=== PATIENT | female | born 1960 ===

== ENCOUNTER 2020-08-20 06:00 | Outpatient (REF) | payer OTHER, SELFPAY ==
[2020-08-20 07:36] LABS: Alanine Aminotransferase 22 U/L (0-31); Albumin Level 4.6 g/dL (3.5-5.0); Alkaline Phosphatase 77 U/L (39-117); Anion Gap 12 (12-20); Aspartate Amino Transferase 21 U/L (5-31); Bilirubin Total 1.2 mg/dL (0.0-1.0); Blood Urea Nitrogen 21 mg/dL (9-16); Calcium 10.4 mg/dL (8.4-10.2); Carbon Dioxide 32 mmol/L (22-29); Chloride 102 mmol/L (96-108); Cholesterol 144 mg/dL; Estimated Glomerular Filt Rate > 60; Glucose Fasting 116 mg/dL (60-99); HDL Cholesterol 71 mg/dL; LDL Cholesterol Calculated 65 mg/dl; Potassium 4.1 mmol/l (3.3-5.1); Sodium 142 mmol/L (135-145); Total Protein 7.3 g/dL (6.5-8.0); Triglycerides 44 mg/dL
[2020-08-20 07:57] LABS: Vitamin D 25-OH Total 39.8 ng/mL (>30)
[2020-08-20 08:00] LABS: Creatinine Urine 122.27 mg/dL; Microalbum/Creatinine Ratio Ur 4.9 ug/mg cr
== END 2020-08-20 06:01 | disposition home or self-care (01) ==
LOC: HO.LAB 06:00
PROVIDERS: Visit Provider Internal Medicine
DX: E11.9 Type 2 diabetes mellitus without complications (principal); E78.00 Pure hypercholesterolemia, unspecified; E55.9 Vitamin D deficiency, unspecified
CPT/HCPCS: 36415; 80053; 80061; 82043; 82306

== ENCOUNTER 2020-08-24 11:19 | Outpatient (REF) | payer OTHER, SELFPAY ==
--- NOTE | 2020-08-24 | MM_ITS ---
EXAMINATION: MM SCREENING DIGITAL BREAST TOMOSYNTHESIS, BILATERAL CLINICAL INFORMATION: Screening. Asymptomatic. The lifetime risk of breast cancer based on the Tyrer-Cuzick Model is 8%. COMPARISON: Mammography: 08/19/2019, 08/13/2018, 05/22/2017 TECHNIQUE: Digital breast tomosynthesis is performed in both the craniocaudal and mediolateral oblique views along with computer-aided detection (CAD). Synthesized 2D images are generated from the tomosynthesis. FINDINGS: There are scattered areas of fibroglandular density (ACR BI-RADS breast composition Category b). There are no significant masses, abnormal calcifications, or other abnormalities. Parenchymal pattern is similar to prior studies. There is a biopsy clip marker again seen 9:00 right breast. Benign bulky calcification again present posterior upper outer left breast. The axilla and skin contours are unremarkable. MM/MM tomosynthesis screening BI IMPRESSION: No mammographic evidence of malignancy. ASSESSMENT: BI-RADS 2: Benign RECOMMENDATION: Routine annual mammography screening. This patient's information was entered into a reminder system with a target due date for their next mammogram.
== END 2020-08-24 11:20 | disposition home or self-care (01) ==
LOC: HO.MAMMO 11:19
PROVIDERS: PCP Internal Medicine; Visit Provider Internal Medicine
DX: Z12.31 Encounter for screening mammogram for malignant neoplasm of breast (principal)
CPT/HCPCS: 77063; 77067

== ENCOUNTER 2021-12-06 09:11 | Outpatient (REF) | payer OTHER, SELFPAY ==
--- NOTE | ~2021-12-06 | MM_ITS ---
EXAMINATION: MM SCREENING DIGITAL BREAST TOMOSYNTHESIS, BILATERAL CLINICAL INFORMATION: Screening. Asymptomatic. The lifetime risk of breast cancer based on the Tyrer-Cuzick Model is 7%. COMPARISON: Mammography: 08/24/2020, 08/19/2019, 08/13/2018 TECHNIQUE: Digital breast tomosynthesis is performed in both the craniocaudal and mediolateral oblique views along with computer-aided detection (CAD). Synthesized 2D images are generated from the tomosynthesis. FINDINGS: There are scattered areas of fibroglandular density (ACR BI-RADS breast composition Category b). There are no significant masses, abnormal calcifications, or other abnormalities. Right breast biopsy clip marker again noted posterior 8:30 o'clock position. Benign coarse calcification again seen posterior upper outer left breast. The axilla and skin contours are unremarkable. MM/MM tomosynthesis screening BI IMPRESSION: No mammographic evidence of malignancy. ASSESSMENT: BI-RADS 2: Benign RECOMMENDATION: Routine annual mammography screening. This patient's information was entered into a reminder system with a target due date for their next mammogram.
== END 2021-12-06 09:12 | disposition home or self-care (01) ==
LOC: HO.MAMMO 09:11
PROVIDERS: Visit Provider Internal Medicine
DX: Z12.31 Encounter for screening mammogram for malignant neoplasm of breast (principal)
CPT/HCPCS: 77063; 77067

== ENCOUNTER 2022-10-14 05:54 | Outpatient (REF) | payer OTHER, SELFPAY ==
[2022-10-14 08:14] LABS: Alanine Aminotransferase 20 U/L (0-31); Albumin Level 4.3 g/dL (3.5-5.0); Alkaline Phosphatase 66 U/L (39-117); Anion Gap 14 (12-20); Aspartate Amino Transferase 22 U/L (5-31); Bilirubin Total 1.3 mg/dL (0.0-1.0); Blood Urea Nitrogen 21 mg/dL (9-16); Calcium 9.7 mg/dL (8.4-10.2); Carbon Dioxide 29 mmol/L (22-29); Chloride 103 mmol/L (96-108); Cholesterol 154 mg/dL; Estimated Glomerular Filt Rate > 60; Glucose Fasting 104 mg/dL (60-99); HDL Cholesterol 57 mg/dL; LDL Cholesterol Calculated 86 mg/dl; Sodium 142 mmol/L (135-145); Total Protein 6.6 g/dL (6.5-8.0); Triglycerides 59 mg/dL
[2022-10-14 08:53] LABS: Microalbumin Urine < 5.0 mg/L
== END 2022-10-14 05:55 | disposition home or self-care (01) ==
LOC: HO.LAB 05:54
PROVIDERS: PCP Internal Medicine; Visit Provider Internal Medicine
DX: E55.9 Vitamin D deficiency, unspecified (principal); E11.9 Type 2 diabetes mellitus without complications; E78.5 Hyperlipidemia, unspecified
CPT/HCPCS: 36415; 80053; 80061; 82043; 82306

== ENCOUNTER → 2022-11-27 14:55 | Outpatient (BNVA) | payer OTHER, SELFPAY | PROVIDERS: PCP Internal Medicine; Visit Provider Surgery Vascular Surgery | DX: Z13.89 Encounter for screening for other disorder (principal) ==

== ENCOUNTER 2022-12-05 10:08 | Outpatient (REF) | payer OTHER, SELFPAY ==
--- NOTE | ~2022-12-05 | US_ITS ---
EXAMINATION: US LOWER EXTREMITY VENOUS (REFLUX EXAM), BILATERAL CLINICAL INDICATION: Varicose veins COMPARISON: None. TECHNIQUE: Color flow triplex imaging and compression Doppler was performed to evaluate both the deep and the superficial systems bilaterally. To evaluate the superficial system, the examination was performed in the upright position. Color-flow Doppler ultrasound and compression ultrasound were utilized. In addition, maneuvers were utilized to demonstrate reflux. FINDINGS: 1. DEEP VENOUS ULTRASOUND OF THE RIGHT LOWER EXTREMITY: Common Femoral Vein: Compressible, normal respiratory variation and augmented flow. Femoral Vein: Compressible, normal color flow and augmentation. Popliteal Vein: Compressible, normal augmentation. Deep Reflux: There is no evidence of reflux in the deep system in either the common femoral vein or the popliteal vein. There is no evidence of a Allen's cyst. 2. SUPERFICIAL ULTRASOUND WITH DOPPLER OF RIGHT LOWER EXTREMITY: GREAT SAPHENOUS VEIN: Saphenofemoral Junction: 0.6 cm; Reflux: 0 ms Proximal Thigh: 0.5 cm; Reflux: 0 ms Mid Thigh: 0.2 cm; Reflux: 0 ms Above Knee: 0.3 cm; Reflux: 0 ms At Knee: 0.3 cm; Reflux: 0 ms Below Knee: 0.3 cm; Reflux: 0 ms Mid Calf: 0.1 cm; Reflux: 0 ms Ankle: 0.2 cm; Reflux: 0 ms DUPLICATED MEDIAL GREAT SAPHENOUS VEIN: Diameter: None Imaged Reflux: NA DUPLICATED LATERAL GREAT SAPHENOUS VEIN: Proximal: 0.3 cm; Reflux: 604 ms Distal: 0.2 cm; Reflux: 0 ms SMALL SAPHENOUS VEIN: Proximal: 0.2 cm; Reflux: 0 ms Distal: 0.2 cm; Reflux: 0 ms VEIN OF GIACOMINI: Diameter: None Imaged Reflux: NA PERFORATORS: Location: Mid thigh and proximal calf Size: 0.2-0.3 cm Reflux: NA VARICOSITIES: Location: None Imaged Size: NA Reflux: NA 3. DEEP VENOUS ULTRASOUND OF THE LEFT LOWER EXTREMITY: Common Femoral Vein: Compressible, normal respiratory variation and augmented flow. Femoral Vein: Compressible, normal color flow and augmentation. Popliteal Vein: Compressible, normal augmentation. Deep Reflux: There is no evidence of reflux in the deep system in either the common femoral vein or the popliteal vein. There is no evidence of a Allen's cyst. 4. SUPERFICIAL ULTRASOUND WITH DOPPLER OF LEFT LOWER EXTREMITY: GREAT SAPHENOUS VEIN: Saphenofemoral Junction: 0.8 cm; Reflux: 0 ms Proximal Thigh: 0.4 cm; Reflux: 0 ms Mid Thigh: 0.3 cm; Reflux: 1852 ms Above Knee: 0.3 cm; Reflux: 0 ms At Knee: 0.4 cm; Reflux: 0 ms Below Knee: 0.2 cm; Reflux: 0 ms Mid Calf: 0.2 cm; Reflux: 0 ms Ankle: 0.2 cm; Reflux: 0 ms DUPLICATED MEDIAL GREAT SAPHENOUS VEIN: Diameter: None Imaged Reflux: NA DUPLICATED LATERAL GREAT SAPHENOUS VEIN: Diameter: 0.2cm Reflux: NA SMALL SAPHENOUS VEIN: Proximal: 0.2 cm; Reflux: 0 ms Distal: 0.2 cm; Reflux: 0 ms VEIN OF GIACOMINI: Diameter: 0.2cm Reflux: NA PERFORATORS: Location: Calf and mid thigh Size: 0.1-0.3 cm Reflux: NA VARICOSITIES: Location: None Imaged Size: NA Reflux: NA US/US venous duplex LE BI IMPRESSION: 1. No DVT in the bilateral lower extremities. 2. Segmental reflux in the right great saphenous vein at the proximal thigh. 3. Focal segmental reflux in the left great saphenous vein at the mid thigh.
[2022-12-05 10:23] LABS: MANUAL DIFF FLAG NO
[2022-12-05 11:13] LABS: Basophils Absolute Auto 0.1 X10*3/uL (0.0-0.2); Basophils Percent Auto 0.9 % (0-2); Eosinophils Absolute Auto 0.2 X10*3/uL (0.0-0.4); Eosinophils Percent Auto 2.3 % (0-4); Hematocrit 39.6 % (37.0-47.0); Hemoglobin 13.1 g/dl (12.0-16.0); Imm Gran Abs Auto 0.02 X10*3/uL (0.00-0.03); Imm Gran Pct Auto 0.3 % (0.0-0.4); Lymphocytes Absolute Auto 1.9 X10*3/uL (1.2-4.9); Mean Corpuscular HGB Conc 33.1 g/dl (31.0-35.0); Mean Corpuscular Hemoglobin 31.4 pg (27.0-33.0); Mean Platelet Volume 9.8 fL (9.4-12.3); Monocytes Absolute Auto 0.5 X10*3/uL (0.1-1.2); Monocytes Percent Auto 7.3 % (2-11); Neutrophils Absolute Auto 4.3 x10*3/uL (2.0-8.3); Neutrophils Percent Auto 62.2 % (45-73); Platelet Count 270 X10*3/uL (160-400); Red Blood Count 4.17 X10*6/uL (4.20-5.50); Red Cell Distribution Width 12.9 % (11.0-16.0); White Blood Count 6.9 X10*3/uL (4.8-10.8)
[2022-12-05 11:26] LABS: Estimated Average Glucose 117 mg/dL; Hemoglobin A1c % 5.7 %
[2022-12-05 14:28] LABS: Free T4 (Free Thyroxine) 0.84 ng/dL (0.71-1.85)
== END 2022-12-05 10:09 | disposition home or self-care (01) ==
LOC: HO.US 10:08
PROVIDERS: Absent Provider Nurse Practitioner Family; PCP Internal Medicine; Visit Provider Surgery Vascular Surgery
DX: I83.11 Varicose veins of right lower extremity with inflammation (principal); E11.9 Type 2 diabetes mellitus without complications
CPT/HCPCS: 36415; 83036; 84439; 84443; 85025; 93970

== ENCOUNTER 2022-12-12 08:50 | Outpatient (REF) | payer OTHER, SELFPAY ==
--- NOTE | ~2022-12-12 | MM_ITS ---
EXAMINATION: MM SCREENING DIGITAL BREAST TOMOSYNTHESIS, BILATERAL CLINICAL INFORMATION: Screening. Asymptomatic. The lifetime risk of breast cancer based on the Tyrer-Cuzick Model is 5%. COMPARISON: Mammography: , 08/24/2020, 08/19/2019, 08/13/2018 TECHNIQUE: Digital breast tomosynthesis is performed in both the craniocaudal and mediolateral oblique views along with computer-aided detection (CAD). Synthesized 2D images are generated from the tomosynthesis. FINDINGS: There are scattered areas of fibroglandular density (ACR BI-RADS breast composition Category b). There are no significant masses, abnormal calcifications, or other abnormalities. Parenchymal pattern is similar to prior studies and there is no developing density or architectural abnormality. Biopsy clip marker again seen posterior 9:00 right breast. The axilla and skin contours are unremarkable. MM/MM tomosynthesis screening BI IMPRESSION: No mammographic evidence of malignancy. ASSESSMENT: BI-RADS 2: Benign RECOMMENDATION: Routine annual mammography screening. This patient's information was entered into a reminder system with a target due date for their next mammogram.
== END 2022-12-12 08:51 | disposition home or self-care (01) ==
LOC: HO.MAMMO 08:50
PROVIDERS: PCP Internal Medicine; Visit Provider Internal Medicine
DX: Z12.31 Encounter for screening mammogram for malignant neoplasm of breast (principal)
CPT/HCPCS: 77063; 77067

== ENCOUNTER 2023-02-26 16:27 | Outpatient (AMB) | payer OTHER, SELFPAY ==
--- NOTE | 2023-02-26 16:30 | A.OFFPC_ITS ---
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 Accompanied by: Self / Same As Patient Allergies No Known Allergies Allergy (Verified 02/26/23 16:42) Medication List - Last Reconciled 02/26/23 by Iman Garzon MD acetaminophen 1,000 mg (2 x 500 mg) PO Q6H 30 days atorvastatin 10 mg PO BEDTIME 90 days cholecalciferol (vitamin D3) 25 mcg PO DAILY 90 days hydrochlorothiazide 25 mg PO DAILY 90 days lisinopril 10 mg PO DAILY 90 days metformin 500 mg PO BID 90 days Tobacco use date assessed: 10/17/22 Dental Screening Dental Screen Date: 02/26/23 Did you have a dental visit in the last 12 months?: Yes Did you have a dental problem in the last 6 months where you did not have access to dental care?: No Was dental information given to patient?: Patient has dentist HPI HPI Comments History of Present Illness Details This is a 62-year-old female with diabetes mellitus type 2, hypertension and dyslipidemia that complains of right upper quadrant abdominal pain that has been present for over a month associated with constipation. She also feels like a right upper quadrant abdominal lump that bothers her. Also when she bends forward she feels more pain. A1c within goal. Blood pressure borderline normal to mildly elevated but I repeated and he was normal. LDL very close to goal. [facility] Medical History (Updated 02/26/23 @ 16:51 by Iman Garzon MD) Diabetes mellitus Dyslipidemia Essential hypertension Hypovitaminosis D Lumbar pain Surgical History History of laparoscopic cholecystectomy History of mammogram History of tubal ligation Family History (Updated 02/26/23 @ 16:35 by VIKTORIA Cedillo) Father Diabetes Hypertension Mother Diabetes Hypertension Social History Housing: House Alcohol intake: current Alcohol intake frequency: a few times a month Alcohol type: beer, wine and hard liquor Patient Tobacco Use Status: Current everyday Tobacco user Cigarettes Per Day: 7 e-Cigarette/Vaping Use: Never Used Second Hand Smoke Exposure: No service: No Current occupational status: employed Current occupational exposures/hazards: No Cognitive needs: No Hearing needs: No Vision needs: No Questionnaire Thrive Questionnaire Date Thrive assessed: 10/17/22 NANNETTE-7 AMB Questionnaire NANNETTE-7 Date NANNETTE - 7 assessed: 10/17/22 Source: Developed by Drs. Walker Johnson, Gillian Pitts, Rayo Abdi and colleagues, with an educational david from [employer]. Review of Systems Const All systems reviewed & are unremarkable except as noted in HPI and below Eyes Reports no additional complaints, Denies change in vision and Denies other visual disturbances Card Denies chest pain at rest, Denies chest pain with activity, Denies edema, Denies irregular heart rhythm, Denies claudication, Denies dyspnea, Denies dyspnea on exertion, Denies orthopnea, Denies paroxysmal nocturnal dyspnea and Denies slow heart rate Resp Denies cough, Denies dyspnea and Denies dyspnea on exertion GI Reports abdominal pain, Denies change in bowel habits, Denies excessive flatus, Denies nausea and Denies vomiting Denies urinary incontinence, Denies urinary hesitancy and Denies urinary urgency Musc Denies abnormal gait, Denies atrophy, Denies deformity and Denies limited range of motion Skin/Breast Denies bleeding lesions, Denies changing lesions and Denies rash Neuro Denies abnormal gait and Denies lack of coordination Physical exam (Primary Care) Vital Signs: Last Vital Signs BP 140/80 H 02/26/23 16:35 BMI result Body Mass Index 27.3 Tobacco/Smoking Status: Tobacco use Status Tobacco use date assessed 10/17/22 02/26/23 16:30 Patient Tobacco Use Status Current everyday Tobacco 02/26/23 16:30 e-Cigarette/Vaping Use Never Used 02/26/23 16:30 Thrive Assessment: Date of Thrive Assessment Date Thrive assessed 10/17/22 02/26/23 16:30 Eyes General: appearance normal, both eyes and all related structures Eyelids: Yes eyelids normal Conjunctivae: conjunctivae normal Neck Neck: Yes normal visual inspection and Yes supple Resp Effort & Inspection: normal respiratory effort Auscultation: clear to auscultation bilaterally Cardio Jugular venous distension: no JVD Rate: regular rate Rhythm: regular rhythm Heart sounds: S1 normal heart sound present and S2 normal heart sound present GI Inspection: Yes normal to inspection Palpation (GI): Soft to palpation and nontender Auscultation: normal bowel sounds Extrem General: Yes full ROM Assessment and Plan Assessment & Plan (1) Diabetes mellitus: Code(s): E11.9 - Type 2 diabetes mellitus without complications Qualifiers: Diabetes mellitus type: type 2 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 A1c goal is equal or less than 7% (2) Essential hypertension: Code(s): I10 - Essential (primary) hypertension Plan: Continue lisinopril. Blood pressure goal is equal or less than 130/80. (3) Dyslipidemia: Code(s): E78.5 - Hyperlipidemia, unspecified Plan: Continue statins. LDL goal is less than 70. (4) Right upper quadrant abdominal pain: Code(s): R10.11 - Right upper quadrant pain Plan: Ultrasound ordered Orders: Orders Comprehensive Scheller. Panel Fast 02/26/23 E11.9 - Type 2 diabetes mellitus without complications Lipid Panel 02/26/23 E78.5 - Hyperlipidemia, unspecified Free T4 (Free Thyroxine) 02/26/23 R79.89 - Other specified abnormal findings of blood chemistry Thyroid Stimulating Hormone 02/26/23 R79.89 - Other specified abnormal findings of blood chemistry Vitamin D 25-OH Total 02/26/23 E55.9 - Vitamin D deficiency, unspecified Microalbumin, Random (w Creat) 02/26/23 E11.9 - Type 2 diabetes mellitus without complications Thyroglobulin Antibodies 02/26/23 R79.89 - Other specified abnormal findings of blood chemistry Thyroid Peroxidase Antibodies 02/26/23 R79.89 - Other specified abnormal findings of blood chemistry US abdomen comp w elastography 02/26/23 R10.11 - Right upper quadrant pain XR knee LT 2V 02/26/23 M25.562 - Pain in left knee XR knee RT 2V 02/26/23 M25.561 - Pain in right knee Medications: New sennosides (senna) 8.6 mg PO BEDTIME 30 days PRN 30 tabs 1RF constipation Discontinued acetaminophen Discontinued Reason: Patient Completed Course 1,000 mg (2 x 500 mg) PO Q6H 30 days 240 tabs 2RF pain E11.9 - Type 2 diabetes mellitus without complications Coding Level of Care Code Est Pt Level 4 (59768) Diagnoses Diabetes mellitus E11.9 Diabetes mellitus type: type 2 Diabetes mellitus longterm insulin use: without longterm use Diabetes mellitus complication status: without complication Essential hypertension I10 Dyslipidemia E78.5 Right upper quadrant abdominal pain R10.11 Time Spent (min) 21
[2023-02-26 16:35] VITALS: BP 140/80; BMI 27.3
[2023-02-27 09:00] VITALS: BP 138/80
== END 2023-02-26 16:56 | disposition home or self-care (01) ==
PROVIDERS: PCP Internal Medicine; Visit Provider Internal Medicine
DX: E11.9 Type 2 diabetes mellitus without complications (principal); I10 Essential (primary) hypertension; E78.5 Hyperlipidemia, unspecified; R10.11 Right upper quadrant pain
CPT/HCPCS: 99214

== ENCOUNTER 2023-03-13 10:45 | Outpatient (AMB) | payer OTHER, SELFPAY ==
--- NOTE | 2023-03-13 10:55 | MHC.OFFVIS ---
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 female here today for pre colonoscopy screening.? Patient was sent to us by his PCP.? Patient is a believes that she had a colonoscopy over 5 years ago, was done at [facility], states that she had 3 polyps. Patient denies any gastrointestinal symptoms in the past or at present.? However patient does report that she is taking Senokot and she continues to be constipated. Patient denies melena, hematochezia, unintentional weight loss or ribbon like stools. Denies any personal or family history of gastrointestinal disease or cancer.? Denies history of difficulty with sedation or anesthesia in the past.? Negative for history of sleep apnea.? Denies any history of cardiac, renal, pulmonary, or hepatic disease.?? No history of infectious? diseases like hepatitis A, B, C, HIV or tuberculosis.? Patient is not on any anticoagulation therapy. [facility] Medical History Diabetes mellitus Dyslipidemia Essential hypertension Hypovitaminosis D Lumbar pain Surgical History History of laparoscopic cholecystectomy History of mammogram History of tubal ligation Family History Father Diabetes Hypertension Mother Diabetes Hypertension Social History Housing: House Alcohol intake: current Alcohol intake frequency: a few times a month Alcohol type: beer, wine and hard liquor Patient Tobacco Use Status: Current everyday Tobacco user Cigarettes Per Day: 7 e-Cigarette/Vaping Use: Never Used Second Hand Smoke Exposure: No service: No Current occupational status: employed Current occupational exposures/hazards: No Cognitive needs: No Hearing needs: No Vision needs: No Review of Systems Const Denies weight gain and Denies weight loss ENT Reports no additional complaints, Denies dysphagia and Denies odynophagia Card Reports no additional complaints Resp Reports no additional complaints GI Denies abdominal pain, Denies belching, Denies melena, Denies bloating, Reports constipation, Denies dysphagia, Denies excessive flatus, Denies dyspepsia, Denies heartburn, Denies diarrhea, Denies loose stools, Denies nausea, Denies odynophagia and Denies vomiting Reports no additional complaints Musc Reports no additional complaints Neuro Reports no additional complaints Psych Reports no additional complaints Endo Reports no additional complaints Physical Exam Vital Signs: Last Vital Signs Pulse 79 03/13/23 10:56 BP 142/75 H 03/13/23 10:56 BMI result Body Mass Index 27.4 Const General: healthy appearing, no acute distress and well developed Nutritional Appearance: well nourished Orientation/consciousness: patient oriented x3 HEENT Head: Yes normal to inspection, Yes normocephalic and Yes atraumatic Face and sinus: Yes normal facial exam Mouth: Normal oral and palatal mucosa present Throat: Yes posterior oropharynx normal, Yes tonsils normal and Yes uvula midline Eyes General: appearance normal, both eyes and all related structures Neck Neck: Yes normal visual inspection, Yes full ROM and Yes trachea midline Thyroid: Thyroid normal Resp Effort & Inspection: normal respiratory effort, able to speak in complete sentences, no tracheal deviation and symmetric chest movement Auscultation: clear to auscultation bilaterally Cardio Rate: regular rate Heart sounds: S1 normal heart sound present and S2 normal heart sound present GI Inspection: Yes normal to inspection and No distended Palpation (GI): Soft to palpation, not firm, nontender and No hepatosplenomegaly present Auscultation: normal bowel sounds General: Yes no CVA tenderness Back/Spine/Pelvis Back: no CVA tenderness Skin General skin exam: elasticity normal, turgor normal and dry skin Neuro General: patient oriented x3 Psych Appearance: grossly normal Mental Status: mental status grossly normal Speech and movement: Normal speech and movement present Affect: normal affect Assessment & Plan Assessment & Plan (1) Constipation: Code(s): K59.00 - Constipation, unspecified Qualifiers: Constipation type: slow transit constipation Qualified Code(s): K59.01 - Slow transit constipation Plan: Patient reports constipation. Senokot is not working for her. Will start Linzess. Patient also reports right upper quadrant pain, however negative exam. Negative Jacobs sign. Most likely gas trapping pain. Hyperactive bowels. Pain not related to meals. Patient was encouraged to increase fluid intake and activity to promote better bowel motility. (2) Screening for colon cancer: Code(s): Z12.11 - Encounter for screening for malignant neoplasm of colon Plan: Patient denies any GI, cardiac or respiratory symptoms.? Patient reports to have history of constipation, Senokot is not helping. She will be started on Linzess 145 mcg daily. Patient will call our office if she continues to be constipated or if it will cause diarrhea. Patient denies any issues with anesthesia in the past.? Denies any history of sleep apnea.? No history infectious diseases in the past or present.? Not on any anticoagulation therapy.? No family or personal history of colon cancer. History of of colonoscopy over 5 years ago patient was found to have 3 polyps.? Patient denies melena, hematochezia, unintentional weight loss or ribbon like stools.? Discussed at length the pre-procedure,? prep, diet & medications as well as what to expect prior, during and after the procedure.?? Stressed the importance of good bowel prep. ?Recommended the use of Vaseline or Calmoseptine OTC & baby wipes with bowel movements to promote comfort.? ?Patient verbalizes understanding and agrees to plan of care.? She was given the opportunity to ask questions and all questions answered.? We will see her after the procedure.? Medications: New linaclotide (Linzess) 145 mcg PO DAILY 30 caps 2RF bisacodyl (Dulcolax (bisacodyl)) take 2 tabs at noon the day before your colonoscopy 10 mg (2 x 5 mg) PO ONCE 4 tabs 0RF 1 day Z12.11 - Encounter for screening for malignant neoplasm of colon polyethylene glycol 3350 (Miralax) As directed by gastroenterology department at [facility] 238 grams PO ONCE 238 grams 0RF Z12.11 - Encounter for screening for malignant neoplasm of colon Coding Level of Care Code New Pt Level 3 (05618) Diagnoses Constipation K59.01 Constipation type: slow transit constipation Screening for colon cancer Z12.11
[2023-03-13 10:56] VITALS: BP 142/75; PULSE 79; BMI 27.4
== END 2023-03-13 11:48 | disposition home or self-care (01) ==
PROVIDERS: PCP Internal Medicine; Visit Provider Nurse Practitioner Family
DX: K59.01 Slow transit constipation (principal); Z12.11 Encounter for screening for malignant neoplasm of colon
CPT/HCPCS: 99203

== ENCOUNTER → 2023-03-13 10:45 | Outpatient (BNVA) | payer OTHER, SELFPAY | PROVIDERS: PCP Internal Medicine; Visit Provider Nurse Practitioner Family ==

== ENCOUNTER 2023-03-20 10:39 | Outpatient (REF) | payer OTHER, SELFPAY ==
--- NOTE | ~2023-03-20 | US_ITS ---
EXAMINATION: US COMPLETE ABDOMEN WITH LIVER ELASTOGRAPHY CLINICAL INFORMATION: Right upper quadrant pain. COMPARISON: None available. TECHNIQUE: Real-time imaging of the abdominal viscera. Noninvasive ultrasound liver fibrosis assessment is performed using Tia ElastPQ point quantification shear wave elastography (2D-SWE) with a C5-2 MHz transducer. Multiple elastography samples are obtained. FINDINGS: PANCREAS: Normal. The visualized pancreatic head and body are normal in appearance. The remainder of the pancreas is obscured from visualization by the overlying bowel gas. ABDOMINAL AORTA: The proximal, middle, and distal aortic segments are normal in caliber. INFERIOR VENA CAVA: Visualized portions are normal. LIVER: The liver demonstrates normal size, contour and diffuse increased echogenicity. No focal lesion or intrahepatic biliary duct dilatation. The right lobe measures 13.5 cm in length. The left lobe measures 9.58 cm in length. Portal flow is hepatopedal. Shear wave liver elastography median stiffness is 1.52 m/s (reference: normal median stiffness is 1.3 m/s or less). IQR/median stiffness to assess sampling precision is 0.07 (reference: good quality data set is IQR/median stiffness of 0.15 or less). GALLBLADDER: Normal. The gallbladder is physiologically distended without evidence of stones, sludge, polyps, wall thickening or pericholecystic fluid. COMMON BILE DUCT: Normal in caliber measuring 0.41 cm in diameter. RIGHT KIDNEY: Normal. No hydronephrosis. No renal calculi or focal parenchymal lesions. The kidney measures 9.3 cm in maximum dimension. LEFT KIDNEY: Normal. No hydronephrosis. No renal calculi or focal parenchymal lesions. The kidney measures 8.9 cm in maximum dimension. SPLEEN: Normal. The spleen measures 8.5 cm in maximum dimension. FREE FLUID: None. US/US abdomen comp w elastography IMPRESSION: 1. Hepatic steatosis without focal lesion. 2. Liver elastography: Median liver stiffness measures 1.52 m/s corresponding to cACLD ruled out. REFERENCE: Society of Radiologists in Ultrasound Liver Stiffness Thresholds (2020): LIVER STIFFNESS THRESHOLDS: *Liver Stiffness equal or less than 1.3 m/s: High probability of being normal. *Liver Stiffness less than 1.7 m/s: In the absence of other known clinical signs, rules out compensated advanced chronic liver disease. *Liver Stiffness 1.7-2.1 m/s: Suggestive of compensated advanced chronic liver disease but need further test for confirmation. *Liver Stiffness over 2.1 m/s: Rules in compensated advanced chronic liver disease. *Liver Stiffness over 2.4 m/s: Suggestive of clinically significant portal hypertension. QUALITY OF DATA SET: *IQR/Median value equal or less than 0.15 implies a quality data set. *IQR/Median value over 0.15 implies a poor quality data set. SIGNIFICANT CHANGE FROM PRIOR EXAM: Significant change if liver stiffness measurement is 10% or greater from prior exam. OTHER CONSIDERATIONS: The stage of liver fibrosis may be overestimated in the setting of acute hepatitis, liver inflammation, elevated liver function tests, hepatic vascular congestion, obstructive cholestasis, non-fasting state, and infiltrative diseases such as amyloidosis and lymphoma. In some patients with NAFLD, the liver stiffness thresholds for compensated advanced chronic liver disease may be lower. In causes other than viral hepatitis and NAFLD, liver stiffness thresholds are not well established.
--- NOTE | ~2023-03-20 | XR_ITS ---
EXAMINATIONS: BILATERAL KNEES 4 VIEWS CLINICAL INFORMATION: Right knee pain, left knee pain. COMPARISON: None. TECHNIQUE: AP, lateral views of each knee were obtained. FINDINGS: There are no fractures or dislocations. There is small joint effusion on the right only . There is no significant soft tissue swelling. Right knee revealed narrowing of lateral compartment of knee joint and mild valgus deformity. There is patellar spurring. Left knee reveals patellar spurring but no joint spaces narrowing. XR/XR knee RT 2V IMPRESSION: Mild degenerative changes in the right knee joint with small joint effusion and patellar spurring.
--- NOTE | ~2023-03-20 | XR_ITS ---
EXAMINATIONS: BILATERAL KNEES 4 VIEWS CLINICAL INFORMATION: Right knee pain, left knee pain. COMPARISON: None. TECHNIQUE: AP, lateral views of each knee were obtained. FINDINGS: There are no fractures or dislocations. There is small joint effusion on the right only . There is no significant soft tissue swelling. Right knee revealed narrowing of lateral compartment of knee joint and mild valgus deformity. There is patellar spurring. Left knee reveals patellar spurring but no joint spaces narrowing. XR/XR knee LT 2V IMPRESSION: Mild degenerative changes in the right knee joint with small joint effusion and patellar spurring.
== END 2023-03-20 10:40 | disposition home or self-care (01) ==
LOC: HO.US 10:39
PROVIDERS: PCP Internal Medicine; Visit Provider Internal Medicine
DX: R10.11 Right upper quadrant pain (principal); M25.561 Pain in right knee; M25.562 Pain in left knee
CPT/HCPCS: 73560; 76705; 76981

== ENCOUNTER 2023-04-26 05:47 | Emergency (ER) | payer OTHER, SELFPAY ==
--- NOTE | ~2023-04-26 | CT_ITS ---
EXAMINATION: CT ABDOMEN AND PELVIS WITHOUT CONTRAST CLINICAL INFORMATION: Right flank pain, nausea, dysuria COMPARISON: Ultrasound abdomen 03/20/2023 TECHNIQUE: Multidetector volumetric imaging was performed from the superior aspect of the liver through the pubic symphysis. Sagittal and coronal reformatted images were obtained on the technologist's workstation. This CT examination was performed using dose optimization techniques as appropriate, variously including the following: *Automated exposure control *Adjustment of mA and/or kV according to patient size (this includes techniques or standardized protocols for targeted exams where dose is matched to indication/reason for exam; i.e. extremities or head) *Use of iterative reconstruction technique DLP: 518 mGy-cm FINDINGS: LUNG BASES: The visualized lung bases are unremarkable. LIVER, GALLBLADDER, AND BILIARY TREE: The liver is normal in size, shaped. Attenuation is within normal limits for CT.. No focal hepatic lesion or biliary ductal dilatation is present. Status postcholecystectomy. PANCREAS: Unremarkable. SPLEEN: Unremarkable. ADRENAL GLANDS: Slightly bulky appearance of the adrenal glands, nonspecific. No focal lesion is identified. KIDNEYS AND URETERS: There is a 4 mm calculus in the right ureterovesical junction. There is moderate hydroureteronephrosis. Moderate right perinephric stranding. There are at least 5 small nonobstructing right renal calculi, measuring 1-2 mm in size. Multiple small punctate densities in the left kidney, could reflect small renal calculi. No left-sided hydronephrosis BLADDER: Unremarkable. GASTROINTESTINAL TRACT: Nondistended. No small or large bowel obstruction. No bowel inflammatory changes are seen. Small-moderate stool in the colon. Appendix appears unremarkable. No free air. ABDOMINAL WALL: No significant hernia is appreciated. LYMPH NODES: No significant lymphadenopathy is identified. VASCULAR: Normal caliber aorta. PELVIC VISCERA: Unremarkable. OSSEOUS STRUCTURES: Mild degenerative changes in the spine. CT/CT abdomen pelvis wo IV con IMPRESSION: Moderate right hydroureteronephrosis, with a 4 mm obstructing calculus at the right ureterovesicular junction. Multiple nonobstructing bilateral renal calculi otherwise seen. Status postcholecystectomy. Additional findings and details as above. Fleischner guidelines were followed.
[2023-04-26 05:54] VITALS: BP 135/68; PULSE 72; RESP 18; TEMP 37.2; O2SAT 100; BMI 26.8
[2023-04-26 06:10] VITALS: BP 145/75; PULSE 74; RESP 19; TEMP 36.7; O2SAT 99
[2023-04-26 06:23] LABS: Hemoglobin 12.7 g/dl (12.0-16.0); Mean Corpuscular HGB Conc 34.3 g/dl (31.0-35.0); Mean Corpuscular Volume 93.2 fL (80.0-98.0); Mean Platelet Volume 8.9 fL (9.4-12.3); Platelet Count 265 X10*3/uL (160-400); Red Blood Count 3.97 X10*6/uL (4.20-5.50); Red Cell Distribution Width 12.6 % (11.0-16.0); White Blood Count 11.2 X10*3/uL (4.8-10.8)
--- NOTE | 2023-04-26 06:28 | MHC.EDTECH ---
This tech assumed care of this pt upon arrival. pt changed into hospital gown. Bloodwork sent to lab for processing awaiting pt to provide urine specimen
[2023-04-26 06:39] LABS: Alanine Aminotransferase 18 U/L (0-31); Albumin Level 4.4 g/dL (3.5-5.0); Alkaline Phosphatase 72 U/L (39-117); Anion Gap 12 (12-20); Aspartate Amino Transferase 19 U/L (5-31); Bilirubin Direct 0.2 mg/dL (0.0-0.5); Bilirubin Total 0.6 mg/dL (0.0-1.0); Blood Urea Nitrogen 18 mg/dL (9-16); Calcium 9.7 mg/dL (8.4-10.2); Carbon Dioxide 24 mmol/L (22-29); Chloride 104 mmol/L (96-108); Creatinine Clr Calc Pharmacy 59.1; Estimated Glomerular Filt Rate > 60; Glucose Random 138 mg/dL (60-115); Potassium 4.6 mmol/L (3.3-5.1); Sodium 135 mmol/L (135-145); Total Protein 6.9 g/dL (6.5-8.0)
--- NOTE | 2023-04-26 06:42 | ED.GENADULT ---
HPI - General Adult General Chief complaint: General Medical Stated complaint: Flank pain Time Seen by Provider: 04/26/23 06:31 Source: patient Mode of arrival: ambulatory Limitations: no limitations History of Present Illness HPI narrative: Is a 62-year-old female who presents emergency department for evaluation of right flank pain. Reports onset yesterday evening that has become progressively worse throughout the night. She has associated nausea and dysuria. She denies fevers, chills, chest pain, shortness of breath, cough, vomiting, diarrhea, constipation, hematochezia, melena, hematuria, abnormal vaginal a discharge/bleeding. Related Data Previous Rx's Medication Instructions Recorded cholecalciferol (vitamin D3) 25 25 mcg PO DAILY 90 days #90 caps 04/11/21 mcg (1,000 unit) capsule metformin 500 mg tablet 500 mg PO BID 90 days #180 tabs 12/15/22 lisinopril 10 mg tablet 10 mg PO DAILY 90 days #90 tabs 02/23/23 sennosides 8.6 mg tablet (senna) 8.6 mg PO BEDTIME PRN constipation 02/26/23 30 days #30 tabs hydrochlorothiazide 25 mg tablet 25 mg PO DAILY 90 days #90 tabs 03/06/23 bisacodyl 5 mg tablet,delayed 10 mg (2 x 5 mg) PO ONCE 1 day #4 03/13/23 release (Dulcolax (bisacodyl)) tabs linaclotide 145 mcg capsule 145 mcg PO DAILY #30 caps 03/13/23 (Linzess) polyethylene glycol 3350 17 238 g PO ONCE #238 grams 03/13/23 gram/dose oral powder (Miralax) atorvastatin 10 mg tablet 10 mg PO BEDTIME 90 days #90 tabs 03/28/23 ketorolac 10 mg tablet 10 mg PO TID PRN pain 5 days #14 04/26/23 tabs ondansetron 4 mg disintegrating 4 mg PO Q8H PRN nausea and 04/26/23 tablet vomiting #10 tabs prednisone 20 mg tablet 20 mg PO DAILY #5 tabs 04/26/23 tamsulosin 0.4 mg capsule (Flomax) 0.4 mg PO BEDTIME #10 caps 04/26/23 Allergies Allergy/AdvReac Type Severity Reaction Status Date / Time No Known Allergies Allergy Verified 03/13/23 10:56 Review of Systems Review of Systems: Yes all other systems are reviewed and are negative [facility] Past Medical History Attestation statement: The following information was validated with the patient. Source: old records reviewed Medical History Lumbar pain Hypovitaminosis D Dyslipidemia Diabetes mellitus Essential hypertension Surgical History History of laparoscopic cholecystectomy History of mammogram History of tubal ligation Family History Family History Father Diabetes Hypertension Mother Diabetes Hypertension Social History Social History Housing: House Alcohol intake: current Alcohol intake frequency: holidays/special occasions only Alcohol type: beer, wine and hard liquor Patient Tobacco Use Status: Current everyday Tobacco user Cigarettes Per Day: 7 Smoked in Last 30 Days: No e-Cigarette/Vaping Use: Never Used Second Hand Smoke Exposure: No Use of substances other than those prescribed or required for medical reasons: No Advance Directives: No Advance Directives Information Provided: Yes Patient : No service: No Current occupational status: employed Current occupational exposures/hazards: No Cognitive needs: No Hearing needs: No Vision needs: No Physical Exam ED Vital Signs: Vital Signs - 24 hr 04/26/23 05:54 04/26/23 06:10 Temperature 98.9 F 98.1 F Pulse Rate 72 74 Respiratory Rate 18 19 Blood Pressure 135/68 145/75 H Pulse Oximetry 100 99 Oxygen Delivery Method Room Air Room Air BMI result Body Mass Index 26.8 Appearance: Alert.?Oriented to person, place and time. No acute distress.?Normal affect. Eyes: Pupils equal, round and reactive to light.? ENT: Pharynx normal.?? Neck: Normal inspection.? Neck supple.?? CVS: Heart sounds normal. Normal heart rate and rhythm.? Pulses normal.?? Respiratory: No respiratory distress.? Lung sounds clear to auscultation bilaterally?? Abdomen: Soft and non-tender. Normoactive bowel sounds. Right CVA tenderness? Skin: Skin warm and dry.? Normal skin color.?? Extremities: No lower extremity edema.? Neuro: Moves all extremities spontaneously. Sensation intact bilaterally. Ambulates with normal steady gait. Course Reevaluation(s) Reevaluation #1: CT of the abdomen and pelvis revealing a moderate right hydroureteronephrosis with a 4 mm obstructing calculus at the UVJ, and multiple nonobstructing bilateral calculi. Patient with significant improvement in her pain after receiving Toradol, nausea has resolved. She is tolerating oral intake. At this time feel that she is stable for discharge home, outpatient follow-up with Urology. Discussed strict return precautions. Will send prescriptions for tamsulosin, prednisone, and Ketorolac to pharmacy. Patient is a diabetic she is not on any insulin takes metformin, and reports that her blood sugars have been in good control. Her glucose today is 138. We discussed close monitoring of blood glucose levels while prednisone as this may result in hyperglycemia and she verbalized understanding of this. Time: 08:27 Medications Administered Discontinued Medications Generic Name Dose Route Start Last Admin Trade Name Freq PRN Reason Stop Dose Admin Sodium Chloride 1,000 mls @ 999 mls/hr 04/26/23 06:45 04/26/23 07:42 Ns IV 04/26/23 07:45 999 mls/hr .Q1H1M BETH Administration Ketorolac Tromethamine 30 mg 04/26/23 06:42 04/26/23 07:41 Ketorolac Tromethamine 30 Mg/Ml Vial IVPUSH 04/26/23 06:43 30 mg ONCE ONE Administration Ondansetron HCl 4 mg 04/26/23 06:42 04/26/23 07:42 Ondansetron Hcl 4 Mg/2 Ml Vial IVPUSH 04/26/23 06:43 4 mg ONCE ONE Administration Medical Decision Making Medical Decision Making [facility] Narrative: patient is a 62-year-old female past medical history of type 2 diabetes, hypertension, dyslipidemia presenting to the emergency department for evaluation of right flank pain. At the time my examination she appears uncomfortable though overall well. She is afebrile without tachycardia. She has notable right CVA tenderness, no abdominal tenderness appreciated upon exam. Will obtain CBC to evaluate for leukocytosis/ anemia, CMP and lipase to evaluate for abnormal electrolytes /abnormal renal function/ abnormal hepatic/biliary function, Urinalysis. in addition will obtain CT of the abdomen and pelvis to evaluate for cholecystitis, nephrolithiasis, ureteral calculi, hydronephrosis, pyelonephritis, less likely to be appendicitis / colitis/obstruction. Patient to receive 1 L normal saline IV, Zofran 4 mg IV, and Toradol IV. Differential Diagnosis Differential Diagnoses: The differential diagnosis associated with the presentation includes ( As noted above) Admission/Observation Consideration of admission/observation: Escalation of care including admission/observation considered ( I considered admission for abdominal pain, see course narrative for further detail) Lab Data MDM Lab Attestation statement: I reviewed the patient's lab results. CBC reveals a mild leukocytosis of 11.2, no anemia. CMP is overall unremarkable. urinalysis reveals Microscopic hematuria, no evidence of infection. 04/26/23 06:17 04/26/23 06:17 Labs: Lab Results 04/26/23 04/26/23 Range/Units 06:17 06:45 WBC 11.2 H (4.8-10.8) X10*3/uL RBC 3.97 L (4.20-5.50) X10*6/uL Hgb 12.7 (12.0-16.0) g/dl Hct 37.0 (37.0-47.0) % MCV 93.2 (80.0-98.0) fL MCH 32.0 (27.0-33.0) pg MCHC 34.3 (31.0-35.0) g/dl RDW 12.6 (11.0-16.0) % Plt Count 265 (160-400) X10*3/uL MPV 8.9 L (9.4-12.3) fL Absolute Nucleated RBC 0.000 (0.0-0.012) X10*3/uL Nucleated RBC % (auto) 0.0 (0.0-0.2) /100WBC Sodium 135 (135-145) mmol/L Potassium 4.6 (3.3-5.1) mmol/L Chloride 104 (96-108) mmol/L Carbon Dioxide 24 (22-29) mmol/L Anion Gap 12 (12-20) BUN 18 H (9-16) mg/dL Creatinine 0.94 (0.5-1.4) mg/dL Estim Creat Clear Calc 59.1 Estimated GFR > 60 Random Glucose 138 H (60-115) mg/dL Calcium 9.7 (8.4-10.2) mg/dL Total Bilirubin 0.6 (0.0-1.0) mg/dL Direct Bilirubin 0.2 (0.0-0.5) mg/dL AST 19 (5-31) U/L ALT 18 (0-31) U/L Alkaline Phosphatase 72 (39-117) U/L Troponin I High Sens < 2.7 (<3.5-17.0) ng/L Total Protein 6.9 (6.5-8.0) g/dL Albumin 4.4 (3.5-5.0) g/dL Lipase 14 (8-78) U/L Urine Color Yellow Urine Appearance Clear Urine pH 7.0 (5.0-9.0) Ur Specific [place] 1.015 (1.005-1.025) Urine Protein Negative (Neg-Trace) mg/dL Urine Glucose (UA) Negative (Negative) mg/dL Urine Ketones Negative (Negative) mg/dL Urine Blood Small (1+) H (Negative) Urine Nitrite Negative (Negative) Ur Leukocyte Esterase Negative (Negative) Urine RBC 3-5 H (0-2) /HPF Urine WBC 0-5 (0-5) /HPF Ur Squamous Epith Cells 0-2 (0-2) /HPF Urine Bacteria None Seen (None Seen) Hyaline Casts 0-2 (0-2) /LPF Radiology Impression Discussion of test interpretation with radiology: I have reviewed the radiologist's reading. Radiologist Impression: CT/CT abdomen pelvis wo IV con IMPRESSION: Moderate right hydroureteronephrosis, with a 4 mm obstructing calculus at the right ureterovesicular junction. Multiple nonobstructing bilateral renal calculi otherwise seen. Status postcholecystectomy. Additional findings and details as above. Independent Historian Clinical information obtained from an independent historian. History obtained from or confirmed by: Spouse ( Present at bedside who confirms history) External Record Review External record reviewed: Outpatient record and Prior outpatient labs Prescription Management I considered prescription management with: Pain Medication Discharge Plan Discharge Clinical Impression: Hydronephrosis with urinary obstruction due to ureteral calculus Patient Disposition: Home, Self-Care Instructions: Hydronephrosis (ED), Ureteral Stones (ED) Additional Instructions: as discussed, please take the medications as prescribed; tamsulosin/ Flomax to be taken in the evening, prednisone to be taken with food daily, and ketorolac to be taken as needed for pain. I have also sent a prescription for Zofran to the pharmacy to use as needed for nausea. You may return back to emergency department with any new or worsening symptoms or concerns. Please contact Urology office to arrange for a follow-up visit. Prescriptions: New tamsulosin [Flomax] 0.4 mg capsule 0.4 mg PO BEDTIME Qty: 10 0RF prednisone 20 mg tablet 20 mg PO DAILY Qty: 5 0RF ondansetron 4 mg tablet,disintegrating 4 mg PO Q8H PRN (Reason: nausea and vomiting) Qty: 10 0RF ketorolac 10 mg tablet 10 mg PO TID PRN (Reason: pain) 5 Days Qty: 14 0RF No Action metformin 500 mg tablet 500 mg PO BID 90 Days Qty: 180 3RF lisinopril 10 mg tablet 10 mg PO DAILY 90 Days Qty: 90 1RF hydrochlorothiazide 25 mg tablet 25 mg PO DAILY 90 Days Qty: 90 3RF atorvastatin 10 mg tablet 10 mg PO BEDTIME 90 Days Qty: 90 3RF cholecalciferol (vitamin D3) 25 mcg (1,000 unit) capsule 25 mcg PO DAILY 90 Days Qty: 90 1RF sennosides [senna] 8.6 mg tablet 8.6 mg PO BEDTIME PRN (Reason: constipation) 30 Days Qty: 30 1RF Linzess 145 mcg capsule 145 mcg PO DAILY Qty: 30 2RF bisacodyl [Dulcolax (bisacodyl)] 5 mg tablet,delayed release (DR/EC) 10 mg PO ONCE 1 Days Qty: 4 0RF Rx Instructions: take 2 tabs at noon the day before your colonoscopy polyethylene glycol 3350 [Miralax] 17 gram/dose powder 238 g PO ONCE Qty: 238 0RF Rx Instructions: As directed by gastroenterology department at [facility] Referrals: Melvina Elam MD [Physician] - Iman Ordoñez MD [Primary Care Provider] -
[2023-04-26 06:47] LABS: Troponin-I High Sensitivity < 2.7 ng/L (<3.5-17.0)
[2023-04-26 06:55] LABS: Appearance Urine Clear; Color Urine Yellow; Glucose Urine UA Negative (Negative); Leukocyte Esterase Urine Negative (Negative); Nitrite Urine Negative (Negative); Specific Gravity - Urine 1.015 (1.005-1.025); UMIC TRIGGER UACC YES; Urine Blood Small (1+) (Negative); Urine Ketones Negative (Negative); Urine Protein Negative (Neg-Trace)
[2023-04-26 07:02] LABS: Bacteria Urine None Seen (None Seen); Hyaline Casts Urine 0-2 /LPF (0-2); Squamous Epithelial Cell Urine 0-2 /HPF (0-2); WBC Urine 0-5 /HPF (0-5)
[2023-04-26 07:05] LABS: Lipase 14 U/L (8-78)
[2023-04-26] MEDS: Ketorolac Tromethamine 30 MG/ML VIAL IVPUSH (07:41)
[2023-04-26] MEDS: 0.9 % Sodium Chloride 1,000 ML 999 ML IV (07:42)
[2023-04-26] MEDS: ondansetron HCL 4 MG/2 ML VIAL IVPUSH (07:42)
[2023-04-26 08:47] VITALS: BP 141/73; PULSE 76; RESP 18; TEMP 36.8; O2SAT 98
== END 2023-04-26 09:12 | disposition home or self-care (01) ==
PROVIDERS: Nurse Practitioner Family; Emergency Provider Student in an Organized Health Care Education/Training Program; PCP Internal Medicine
DX: N13.2 Hydronephrosis with renal and ureteral calculous obstruction (principal); R11.2 Nausea with vomiting, unspecified; R30.0 Dysuria; F17.210 Nicotine dependence, cigarettes, uncomplicated; Z71.6 Tobacco abuse counseling; Z79.899 Other long term (current) drug therapy
CPT/HCPCS: 36415; 74176; 80053; 81001; 82248; 83690; 84484; 85027; 96361; 96374; 96375; 99284; J1885; J2405

== ENCOUNTER 2023-05-29 14:19 | Outpatient (AMB) | payer OTHER, SELFPAY ==
--- NOTE | 2023-05-29 14:24 | A.OFFVIS_ITS ---
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 05/29/2023? She presents today for an evaluation of nephrolithiasis. She was seen ER on 04/26/23 for right flank pain. She has past medical history significant for type 2 diabetes and hypertension. Patient states that since she left the ER she has felt better. She states that this is the first episode of having pain from the kidney stones. She did not know that she had kidney stones prior. I reviewed the abdomen/pelvis results from 04/26/2023 revealed moderate right hydroureteronephrosis, with a 4 mm obstructing calculus at the right ureterovesicular junction. Multiple nonobstructing bilateral renal calculi otherwise seen. Examination: mild tenderness in the right lower quadrant; no flank tenderness. Follow-up renal US, discussed with the patient, but she is concerned about the cost of the Ultrasound and declines further US FU at this time. As she is asymptomatic and clinical exam is equivocal, she may have passed the stone. I will observe for now. Encouraged the patient to increase the fluid intake and she was given a pamphlet on guidelines on diet to decrease the risk of kidney stone formation. Plan: To check metabolic work serum calcium and serum parathyroid 24-hour urine collection was ordered. Follow-up in 10 weeks to review the lab results. [facility] Medical History Lumbar pain Hypovitaminosis D Dyslipidemia Diabetes mellitus Essential hypertension Surgical History History of mammogram History of laparoscopic cholecystectomy History of tubal ligation Family History Father Diabetes Hypertension Mother Diabetes Hypertension Social History Housing: House Alcohol intake: current Alcohol intake frequency: holidays/special occasions only Alcohol type: beer, wine and hard liquor Patient Tobacco Use Status: Current everyday Tobacco user Cigarettes Per Day: 7 e-Cigarette/Vaping Use: Never Used Second Hand Smoke Exposure: No service: No Current occupational status: employed Current occupational exposures/hazards: No Cognitive needs: No Hearing needs: No Vision needs: No Review of Systems Const All systems reviewed & are unremarkable except as noted in HPI and below Reports no additional complaints Eyes Reports no additional complaints ENT Reports no additional complaints Card Denies dyspnea Resp Denies cough and Denies dyspnea GI Reports no additional complaints Reports no additional complaints Musc Reports no additional complaints Skin/Breast Denies rash and Denies unusual bruising Neuro Reports no additional complaints Psych Reports no additional complaints Endo Reports no additional complaints Chin/Lymph Reports no additional complaints Aller/Immun Reports no additional complaints Physical Exam Const General: cooperative, healthy appearing and no acute distress Orientation/consciousness: patient oriented x3 HEENT Head: Yes normal to inspection, Yes normocephalic and Yes atraumatic Eyes Conjunctivae: conjunctivae normal Neck Neck: Yes normal visual inspection and Yes trachea midline Chest Chest palpation & inspection: normal inspection of the chest Resp Effort & Inspection: normal respiratory effort Cardio Rate: regular rate GI Inspection: Yes normal to inspection Palpation (GI): Soft to palpation Skin General skin exam: no rashes or lesions noted Neuro General: patient oriented x3 Extrem General: No edema Psych Appearance: grossly normal Results Reviewed Results Reviewed: Date of Service: 04/26/23 EXAMINATION: CT ABDOMEN AND PELVIS WITHOUT CONTRAST?? CLINICAL INFORMATION: Right flank pain, nausea, dysuria?? COMPARISON: Ultrasound abdomen 03/20/2023 FINDINGS: LUNG BASES: The visualized lung bases are unremarkable.?? LIVER, GALLBLADDER, AND BILIARY TREE: The liver is normal in size, shaped. Attenuation is within normal limits for CT.. No focal hepatic lesion or biliary ductal dilatation is present. Status postcholecystectomy.?? PANCREAS: Unremarkable.?? SPLEEN: Unremarkable.?? ADRENAL GLANDS: Slightly bulky appearance of the adrenal glands, nonspecific. No focal lesion is identified.?? KIDNEYS AND URETERS: There is a 4 mm calculus in the right ureterovesical junction. There is moderate hydroureteronephrosis. Moderate right perinephric stranding. There are at least 5 small nonobstructing right renal calculi, measuring 1-2 mm in size. Multiple small punctate densities in the left kidney, could reflect small renal calculi. No left-sided hydronephrosis BLADDER: Unremarkable.?? GASTROINTESTINAL TRACT: Nondistended. No small or large bowel obstruction. No bowel inflammatory changes are seen. Small-moderate stool in the colon. Appendix appears unremarkable. No free air.?? ABDOMINAL WALL: No significant hernia is appreciated.?? LYMPH NODES: No significant lymphadenopathy is identified. VASCULAR: Normal caliber aorta. PELVIC VISCERA: Unremarkable.?? OSSEOUS STRUCTURES: Mild degenerative changes in the spine.?? IMPRESSION: Moderate right hydroureteronephrosis, with a 4 mm obstructing calculus at the right ureterovesicular junction. Multiple nonobstructing bilateral renal calculi otherwise seen. Status postcholecystectomy. Assessment & Plan Assessment & Plan (1) Bilateral kidney stones: Code(s): N20.0 - Calculus of kidney (2) Right ureteral stone: Code(s): N20.1 - Calculus of ureter (3) Hydronephrosis: Code(s): N13.30 - Unspecified hydronephrosis Plan To check metabolic work serum calcium and serum parathyroid? 24-hour urine collection was ordered. Follow-up in 10 weeks to review the lab results.? Orders: Orders Calcium 05/29/23 N20.0 - Calculus of kidney, N20.1 - Calculus of ureter Parathyroid Hormone Related Pr 05/29/23 N20.0 - Calculus of kidney Patient Instructions: The patient had an opportunity to ask questions regarding treatment plan. All questions were answered. Imaging, Laboratory studies and physical exam results were discussed and reviewed in detail. No major barriers to understanding were identified. The patient expressed understanding and agreement with the above treatment plan.? ? ? The patient is aware they should contact our office by phone for worsening of their current condition or the appearance of new symptoms. Compliance is encouraged with any medications and followup testing that is ordered.? ? ? It is a privilege to be allowed the opportunity to participate in the urologic care of your patient. If you have any questions or concerns regarding treatment for the above conditions please do not hesitate to contact me. The office telephone contact is [phone].? ? ? This note is constructed in part using voice recognition software. While every effort has been made to ensure accuracy food service tray attendant errors may have been included.? ? ? Yours sincerely,? ? ? Melvina Elam MD? Coding Level of Care Code New Pt Level 4 (88952) Diagnoses Bilateral kidney stones N20.0 Right ureteral stone N20.1 Hydronephrosis N13.30
== END 2023-05-29 15:21 | disposition home or self-care (01) ==
PROVIDERS: PCP Internal Medicine; Visit Provider Urology
DX: N20.0 Calculus of kidney (principal); N20.1 Calculus of ureter; N13.30 Unspecified hydronephrosis
CPT/HCPCS: 99204

== ENCOUNTER → 2023-05-29 14:19 | Outpatient (BNVA) | payer OTHER, SELFPAY | PROVIDERS: PCP Internal Medicine; Visit Provider Urology ==

== ENCOUNTER 2023-06-05 09:21 | Outpatient (REF) | payer OTHER, SELFPAY ==
--- NOTE | ~2023-06-05 | XR_ITS ---
EXAMINATIONS: XR KNEE, RIGHT XR KNEE, STANDING, BILATERAL CLINICAL INFORMATION: Pain in unspecified knee. COMPARISON: 03/20/2023 TECHNIQUE: AP standing view of bilateral knees. Lateral and sunrise views of the right knee. FINDINGS: LEFT KNEE: Standing view of the left knee demonstrates mild medial joint space narrowing with tiny medial marginal osteophytes. RIGHT KNEE: Moderate lateral joint space narrowing. Small tricompartmental osteophytes. No significant joint effusion. Multiple corticated calcifications in the soft tissues along the medial and posterior aspect of the right knee. XR/XR knee RT 2V IMPRESSION: 1. Moderate degenerative changes right knee. 2. Mild degenerative changes left knee.
--- NOTE | ~2023-06-05 | XR_ITS ---
EXAMINATIONS: XR KNEE, RIGHT XR KNEE, STANDING, BILATERAL CLINICAL INFORMATION: Pain in unspecified knee. COMPARISON: 03/20/2023 TECHNIQUE: AP standing view of bilateral knees. Lateral and sunrise views of the right knee. FINDINGS: LEFT KNEE: Standing view of the left knee demonstrates mild medial joint space narrowing with tiny medial marginal osteophytes. RIGHT KNEE: Moderate lateral joint space narrowing. Small tricompartmental osteophytes. No significant joint effusion. Multiple corticated calcifications in the soft tissues along the medial and posterior aspect of the right knee. XR/XR knee standing BI IMPRESSION: 1. Moderate degenerative changes right knee. 2. Mild degenerative changes left knee.
== END 2023-06-05 09:22 | disposition home or self-care (01) ==
LOC: HO.HOSX 09:21
PROVIDERS: Visit Provider Orthopaedic Surgery
DX: M17.11 Unilateral primary osteoarthritis, right knee (principal); E11.9 Type 2 diabetes mellitus without complications
CPT/HCPCS: 73560; 73565

== ENCOUNTER 2023-06-05 09:46 | Outpatient (AMB) | payer OTHER, SELFPAY ==
--- NOTE | 2023-06-05 09:54 | A.OFFVIS_ITS ---
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 Patient reports that she has had ongoing knee pain for about a year now. Pain increases with climbing of stairs and ROM. Knee gives out. She uses a brace and topical lidocaine which does help. She is hesitant, but interested in injection. 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 She complains of pain with daily activity, worse with using stairs or with motion. She says this has been present for ~1 year and her knee will give out on her at times. She denies any prior treatment. She has been wearing a knee brace and using topical Lidocaine, which is somewhat helpful. She is currently being seen for bilateral kidney stones. [facility] Medical History Lumbar pain Hypovitaminosis D Dyslipidemia Diabetes mellitus Essential hypertension Surgical History History of mammogram History of laparoscopic cholecystectomy History of tubal ligation Family History Father Diabetes Hypertension Mother Diabetes Hypertension Social History Housing: House Alcohol intake: current Alcohol intake frequency: holidays/special occasions only Alcohol type: beer, wine and hard liquor Patient Tobacco Use Status: Current everyday Tobacco user Cigarettes Per Day: 7 e-Cigarette/Vaping Use: Never Used Second Hand Smoke Exposure: No service: No Current occupational status: employed Current occupational exposures/hazards: No Cognitive needs: No Hearing needs: No Vision needs: No Physical Exam Vital Signs: BMI result Body Mass Index 26.8 Extrem Other: mild right knee valgus with lateral and retropatellar ttp Results Reviewed Results Reviewed: I personally reviewed relevant radiographs. Vagus pattern right knee OA with moderate anterior and lateral compartment OA Assessment & Plan Assessment & Plan (1) Osteoarthritis of right knee: Code(s): M17.11 - Unilateral primary osteoarthritis, right knee Plan: This is a 63 year old woman with right knee OA. She has pain with daily activity,She finds some relief from a knee brace and topical Lidocaine. I dis cussed her diagnosis and treatment options. SHe will follow up if she would like injections or if her pain worsens (2) Diabetes mellitus: Code(s): E11.9 - Type 2 diabetes mellitus without complications Qualifiers: Diabetes mellitus complication status: without complication Diabetes mellitus intermediate card tender insulin use: without intermediate card tender use Diabetes mellitus type: type 2 Qualified Code(s): E11.9 - Type 2 diabetes mellitus without complications Plan: I discussed the hyperglycemic effects of steroid injections. Orders: Orders XR knee standing BI 06/05/23 M25.569 - Pain in unspecified knee XR knee RT 2V 06/05/23 M25.569 - Pain in unspecified knee Coding Level of Care Code Est Pt Level 3 (11265) Diagnoses Osteoarthritis of right knee M17.11 Type 2 diabetes mellitus without complication, without long-term current use of insulin E11.9 Diabetes mellitus complication status: without complication Diabetes mellitus senior care insulin use: without intermediate card tender use Diabetes mellitus type: type 2
[2023-06-05 10:08] VITALS: BMI 26.8
== END 2023-06-05 11:03 | disposition home or self-care (01) ==
PROVIDERS: PCP Internal Medicine; Visit Provider Orthopaedic Surgery
DX: M17.11 Unilateral primary osteoarthritis, right knee (principal); E11.9 Type 2 diabetes mellitus without complications
CPT/HCPCS: 99203

== ENCOUNTER 2023-09-18 07:03 | Outpatient (REF) | payer OTHER, SELFPAY ==
[2023-09-18 08:46] LABS: Alanine Aminotransferase 13 U/L (0-31); Alkaline Phosphatase 73 U/L (39-117); Anion Gap 9 (12-20); Aspartate Amino Transferase 15 U/L (5-31); Bilirubin Total 0.6 mg/dL (0.0-1.0); Blood Urea Nitrogen 19 mg/dL (9-16); Calcium 9.4 mg/dL (8.4-10.2); Carbon Dioxide 29 mmol/L (22-29); Chloride 108 mmol/L (96-108); Cholesterol 134 mg/dL (<200); Estimated Glomerular Filt Rate > 60; Glucose Fasting 97 mg/dL (60-99); HDL Cholesterol 53 mg/dL (>40); LDL Cholesterol Calculated 73 mg/dL (<100); Potassium 3.9 mmol/L (3.3-5.1); Sodium 142 mmol/L (135-145); Total Protein 6.7 g/dL (6.5-8.0); Triglycerides 42 mg/dL (<150)
[2023-09-18 08:51] LABS: Creatinine Urine 62.66 mg/dL; Microalbum/Creatinine Ratio Ur 9.5 ug/mg cr (<30)
[2023-09-18 09:08] LABS: Free T4 (Free Thyroxine) 0.85 ng/dL (0.71-1.85); Thyroid Stimulating Hormone 0.56 uIU/mL (0.32-4.0); Vitamin D 25-OH Total 33.4 ng/mL (>30)
[2023-09-19 10:08] LABS: Thyroglobulin Antibodies <1 IU/mL (< or = 1); Thyroid Peroxidase Antibodies <1 IU/mL (<9)
== END 2023-09-18 07:04 | disposition home or self-care (01) ==
LOC: HO.LAB 07:03
PROVIDERS: Absent Provider Urology; PCP Internal Medicine; Visit Provider Internal Medicine
DX: R79.89 Other specified abnormal findings of blood chemistry (principal); E78.5 Hyperlipidemia, unspecified; E55.9 Vitamin D deficiency, unspecified; E11.9 Type 2 diabetes mellitus without complications
CPT/HCPCS: 36415; 80053; 80061; 82043; 82306; 82570; 84439; 84443; 86376; 86800

== ENCOUNTER 2023-09-21 16:55 | Outpatient (AMB) | payer OTHER, SELFPAY ==
[2023-09-21 17:07] VITALS: BP 160/90; BMI 27.5
--- NOTE | 2023-09-21 17:07 | MHC.PC.OV ---
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 Accompanied by: Self / Same As Patient Allergies No Known Allergies Allergy (Verified 09/21/23 17:23) Medication List - Last Reconciled 09/21/23 by Iman Garzon MD atorvastatin 10 mg PO BEDTIME 90 days bisacodyl (Dulcolax (bisacodyl)) 10 mg (2 x 5 mg) PO ONCE 1 day cholecalciferol (vitamin D3) 25 mcg PO DAILY 90 days hydrochlorothiazide 25 mg PO DAILY 90 days ketorolac 10 mg PO TID PRN 5 days linaclotide (Linzess) 145 mcg PO DAILY PRN lisinopril 10 mg PO DAILY 90 days metformin 500 mg PO BID 90 days polyethylene glycol 3350 (Miralax) 238 grams PO ONCE sennosides (senna) 8.6 mg PO BEDTIME PRN Tobacco use date assessed: 09/21/23 Fall risk assessment: No Falls in past year Last assessed Fall Risk: 09/21/23 Dental Screening Dental Screen Date: 09/21/23 Did you have a dental visit in the last 12 months?: No Did you have a dental problem in the last 6 months where you did not have access to dental care?: No Was dental information given to patient?: Patient has dentist HPI HPI Comments History of Present Illness Details This is a 63-year-old female with diabetes mellitus type 2, hypertension, dyslipidemia and chronic idiopathic constipation that comes today for follow-up on her conditions. A1c within goal. Blood pressure stable. LDL very close to goal. Constipation stable with Linzess as needed. Colonoscopy pending. Denies any chest pain or shortness of breath. [facility] Medical History Lumbar pain Hypovitaminosis D Dyslipidemia Diabetes mellitus Essential hypertension Surgical History History of mammogram History of laparoscopic cholecystectomy History of tubal ligation Family History Father Diabetes Hypertension Mother Diabetes Hypertension Social History Housing: House Alcohol intake: current Alcohol intake frequency: holidays/special occasions only Alcohol type: beer, wine and hard liquor Patient Tobacco Use Status: Current everyday Tobacco user Cigarettes Per Day: 7 e-Cigarette/Vaping Use: Never Used Second Hand Smoke Exposure: No service: No Current occupational status: employed Current occupational exposures/hazards: No Cognitive needs: No Hearing needs: No Vision needs: No Questionnaire PHQ-9 Over the last 2 weeks, how often have you been bothered by any of the following problems? 1. Little interest or pleasure in doing things: not at all 2. Feeling down, depressed, or hopeless: not at all 3. Trouble falling or staying asleep, or sleeping too much: not at all 4. Feeling tired or having little energy: not at all 5. Poor appetite or overeating: not at all 6. Feeling bad about yourself - or that you are a failure or have let yourself or your family down: not at all 7. Trouble concentrating on things, such as reading the newspaper or watching television: not at all 8. Moving or speaking so slowly that other people could have noticed. Or the opposite - being so fidgety or restless that you have been moving around a lot more than usual: not at all 9. Thoughts that you would be better off or of hurting yourself in some way: not at all Total score: 0 Depression Screening Interpretation: Negative Depression Screening Done: Yes 40106 - PHQ-9 Billing: Yes Source: Developed by Drs. Walker Johnson, Gillian Pitts, Rayo Abdi and colleagues, with an educational david from [employer]. Thrive Questionnaire Date Thrive assessed: 10/17/22 NANNETTE-7 AMB Questionnaire NANNETTE-7 Date NANNETTE - 7 assessed: 09/21/23 Feeling nervous, anxious, or on edge: 0 = Not at all Not being able to stop or control worryin = Not at all Worrying too much about different things: 0 = Not at all Trouble relaxin = Not at all Being so restless that it is hard to sit still: 0 = Not at all Becoming easily annoyed or irritable: 0 = Not at all Feeling afraid as if something awful might happen: 0 = Not at all Total NANNETTE-7 score (0-4 normal; 5-9 mild; 10-14 moderate; 15-21 severe): 0 Source: Developed by Drs. Walker Johnson, Gillian Pitts, Rayo Abdi and colleagues, with an educational david from [employer]. NANNETTE-7 Assessment Billing NANNETTE-7 Assessment Tool: NANNETTE-7 Assessment 87301 Review of Systems Const All systems reviewed & are unremarkable except as noted in HPI and below Eyes Reports no additional complaints, Denies change in vision and Denies other visual disturbances Card Denies chest pain at rest, Denies chest pain with activity, Denies edema, Denies irregular heart rhythm, Denies claudication, Denies dyspnea, Denies dyspnea on exertion, Denies orthopnea, Denies paroxysmal nocturnal dyspnea and Denies slow heart rate Resp Denies cough, Denies dyspnea and Denies dyspnea on exertion GI Denies abdominal pain, Denies change in bowel habits, Denies excessive flatus, Denies nausea and Denies vomiting Denies urinary incontinence, Denies urinary hesitancy and Denies urinary urgency Musc Denies abnormal gait, Denies atrophy, Denies deformity and Denies limited range of motion Skin/Breast Denies bleeding lesions, Denies changing lesions and Denies rash Neuro Denies abnormal gait, Denies behavioral changes and Denies lack of coordination Psych Denies behavioral changes Physical exam (Primary Care) Vital Signs: Last Vital Signs BP 160/90 H 09/21/23 17:07 BMI result Body Mass Index 27.5 Tobacco/Smoking Status: Tobacco use Status Tobacco use date assessed 09/21/23 09/21/23 17:10 Patient Tobacco Use Status Current everyday Tobacco 09/21/23 17:10 e-Cigarette/Vaping Use Never Used 09/21/23 17:10 PHQ-9: PHQ-9 Score PHQ-9: Total score 0 09/21/23 17:10 Depression Screening Interpretation: Negative Thrive Assessment: Date of Thrive Assessment Date Thrive assessed 10/17/22 09/21/23 17:10 Eyes General: appearance normal, both eyes and all related structures Eyelids: Yes eyelids normal Conjunctivae: conjunctivae normal Neck Neck: Yes normal visual inspection and Yes supple Resp Effort & Inspection: normal respiratory effort Auscultation: clear to auscultation bilaterally Cardio Jugular venous distension: no JVD Rate: regular rate Rhythm: regular rhythm Heart sounds: S1 normal heart sound present and S2 normal heart sound present Extrem General: Yes full ROM Results AMB Hemoglobin A1c AMB Hemoglobin A1c 6.3 % Last Edit by VIKTORIA Cedillo on 09/21/23 17:28 Assessment and Plan Assessment & Plan (1) Diabetes mellitus: Code(s): E11.9 - Type 2 diabetes mellitus without complications Qualifiers: Diabetes mellitus type: type 2 Diabetes mellitus buttermaker continuous churn insulin use: without buttermaker continuous churn use Diabetes mellitus complication status: without complication Qualified Code(s): E11.9 - Type 2 diabetes mellitus without complications Plan: Continue metformin. A1c goal is equal or less than 7%. (2) Essential hypertension: Code(s): I10 - Essential (primary) hypertension Plan: Continue lisinopril. Blood pressure goal is equal or less than 130/80. (3) Dyslipidemia: Code(s): E78.5 - Hyperlipidemia, unspecified Plan: Continue statins. LDL goal is less than 70. (4) Chronic idiopathic constipation: Code(s): K59.04 - Chronic idiopathic constipation Plan: Continue Linzess. Orders: Orders AMB Hemoglobin A1c Today E11.9 - Type 2 diabetes mellitus without complications Coding Level of Care Code Est Pt Level 4 (47090) Diagnoses Type 2 diabetes mellitus without complication, without long-term current use of insulin E11.9 Diabetes mellitus type: type 2 Diabetes mellitus buttermaker continuous churn insulin use: without snf use Diabetes mellitus complication status: without complication Essential hypertension I10 Dyslipidemia E78.5 Chronic idiopathic constipation K59.04 Additional Codes NANNETTE-7 Assessment Billing - NANNETTE-7 Assessment Tool: NANNETTE-7 Assessment 34867 ([id number]) Time Spent (min) 22
== END 2023-09-21 17:36 | disposition home or self-care (01) ==
PROVIDERS: PCP Internal Medicine; Visit Provider Internal Medicine
DX: E11.9 Type 2 diabetes mellitus without complications (principal); I10 Essential (primary) hypertension; E78.5 Hyperlipidemia, unspecified; K59.04 Chronic idiopathic constipation
CPT/HCPCS: 83036; 99214

== ENCOUNTER 2023-11-12 16:36 | Outpatient (AMB) | payer OTHER, SELFPAY ==
[2023-11-12 16:38] VITALS: BP 146/82; BMI 27.8
--- NOTE | 2023-11-12 16:38 | MHC.PC.OV ---
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 Accompanied by: Self / Same As Patient Allergies No Known Allergies Allergy (Verified 11/12/23 16:49) Medication List - Last Reconciled 11/12/23 by Iman Garzon MD atorvastatin 10 mg PO BEDTIME 90 days bisacodyl (Dulcolax (bisacodyl)) 10 mg (2 x 5 mg) PO ONCE 1 day cholecalciferol (vitamin D3) 25 mcg PO DAILY 90 days hydrochlorothiazide 25 mg PO DAILY 90 days ketorolac 10 mg PO TID PRN 5 days linaclotide (Linzess) 145 mcg PO DAILY PRN lisinopril 10 mg PO DAILY 90 days metformin 500 mg PO BID 90 days polyethylene glycol 3350 (Miralax) 238 grams PO ONCE sennosides (senna) 8.6 mg PO BEDTIME PRN Tobacco use date assessed: 09/21/23 Fall risk assessment: No Falls in past year Last assessed Fall Risk: 11/12/23 Dental Screening Dental Screen Date: 09/21/23 HPI HPI Comments History of Present Illness Details This is a 63-year-old female with diabetes mellitus type 2 that comes for her physical exam. A1c within goal. Will call for diabetic eye exam. Last Pap smear was 2018 and will be referred to another Pap smear. Last mammogram was December 2022 and was normal. Colonoscopy is scheduled for February 2024. Denies any chest pain or shortness of breath. No fever or cough. LDL also very close to goal. Blood pressure stable. [facility]LY [facility] Medical History (Updated 11/14/23 @ 09:33 by Iman Garzon MD) Lumbar pain Hypovitaminosis D Dyslipidemia Diabetes mellitus Essential hypertension Surgical History History of mammogram History of laparoscopic cholecystectomy History of tubal ligation Family History (Updated 11/12/23 @ 16:56 by Iman Garzon MD) Father Diabetes Hypertension Mother Hypertension Social History (Updated 11/12/23 @ 16:56 by Iman Garzon MD) Housing: House Alcohol intake: current Alcohol intake frequency: a few times a week Alcohol type: wine and hard liquor Patient Tobacco Use Status: Current everyday Tobacco user Tobacco use type: Cigarette Cigarettes Per Day: 7 e-Cigarette/Vaping Use: Never Used Second Hand Smoke Exposure: No service: No Current occupational status: employed Current occupational exposures/hazards: No Cognitive needs: No Hearing needs: No Vision needs: No Questionnaire Thrive Questionnaire Date Thrive assessed: 10/17/22 NANNETTE-7 AMB Questionnaire NANNETTE-7 Date NANNETTE - 7 assessed: 09/21/23 Source: Developed by Drs. Walker Johnson, Gillian Pitts, Rayo Abdi and colleagues, with an educational david from [employer]. Review of Systems Const All systems reviewed & are unremarkable except as noted in HPI and below Eyes Reports no additional complaints, Denies change in vision and Denies other visual disturbances Card Denies chest pain at rest, Denies chest pain with activity, Denies edema, Denies irregular heart rhythm, Denies claudication, Denies dyspnea, Denies dyspnea on exertion, Denies orthopnea, Denies paroxysmal nocturnal dyspnea and Denies slow heart rate Resp Denies cough, Denies dyspnea and Denies dyspnea on exertion GI Denies abdominal pain, Denies change in bowel habits, Denies excessive flatus, Denies nausea and Denies vomiting Denies urinary incontinence, Denies urinary hesitancy and Denies urinary urgency Musc Denies atrophy, Denies deformity and Denies limited range of motion Chin/Lymph Denies easy bruising Physical exam (Primary Care) Vital Signs: Last Vital Signs BP 146/82 H 11/12/23 16:38 BMI result Body Mass Index 27.8 Tobacco/Smoking Status: Tobacco use Status Tobacco use date assessed 09/21/23 11/12/23 16:40 Patient Tobacco Use Status Current everyday Tobacco 11/12/23 16:56 Tobacco use type Cigarette 11/12/23 16:57 e-Cigarette/Vaping Use Never Used 11/12/23 16:56 Thrive Assessment: Date of Thrive Assessment Date Thrive assessed 10/17/22 11/12/23 16:40 Const Orientation/consciousness: patient oriented x3 HENMT Head: Yes normal to inspection, Yes normocephalic and Yes atraumatic Ears: external ears normal Eyes General: appearance normal, both eyes and all related structures Eyelids: Yes eyelids normal Conjunctivae: conjunctivae normal Neck Neck: Yes normal visual inspection and Yes supple Resp Effort & Inspection: normal respiratory effort Auscultation: clear to auscultation bilaterally Cardio Jugular venous distension: no JVD Rate: regular rate Rhythm: regular rhythm Heart sounds: S1 normal heart sound present and S2 normal heart sound present GI Inspection: Yes normal to inspection Palpation (GI): Soft to palpation and nontender Auscultation: normal bowel sounds Skin General skin exam: no rashes or lesions noted Neuro General: patient oriented x3 and no focal motor deficits Extrem General: Yes full ROM Psych Appearance: grossly normal Assessment and Plan Assessment & Plan (1) Physical exam: Code(s): Z00.00 - Encounter for general adult medical examination without abnormal findings Plan: Repeat in a year. (2) Diabetes mellitus: Code(s): E11.9 - Type 2 diabetes mellitus without complications Qualifiers: Diabetes mellitus type: type 2 Diabetes mellitus terminal block assembler insulin use: without terminal block assembler use Diabetes mellitus complication status: without complication Qualified Code(s): E11.9 - Type 2 diabetes mellitus without complications Plan Continue metformin. A1c goal is equal or less than 7%. Orders: Orders Lipid Panel 4 Months E78.5 - Hyperlipidemia, unspecified Microalbumin, Random (w Creat) 4 Months E11.9 - Type 2 diabetes mellitus without complications Vitamin D 25-OH Total 4 Months E55.9 - Vitamin D deficiency, unspecified Comprehensive [place]. Panel Fast 4 Months E11.9 - Type 2 diabetes mellitus without complications Referrals HYDROLOGICAL TECHNICAL OFFICER Referral Z12.4 - Encounter for screening for malignant neoplasm of cervix Coding Level of Care Code Est Pt Prev Care 40-64y(04144) Diagnoses Physical exam Z00.00 Type 2 diabetes mellitus without complication, without long-term current use of insulin E11.9 Diabetes mellitus type: type 2 Diabetes mellitus terminal block assembler insulin use: without terminal block assembler use Diabetes mellitus complication status: without complication Time Spent (min) 33
== END 2023-11-12 17:06 | disposition home or self-care (01) ==
PROVIDERS: PCP Internal Medicine; Visit Provider Internal Medicine
DX: Z00.00 Encounter for general adult medical examination without abnormal findings (principal); E11.9 Type 2 diabetes mellitus without complications
CPT/HCPCS: 99396

== ENCOUNTER 2023-12-18 08:15 | Outpatient (REF) | payer OTHER, SELFPAY ==
--- NOTE | ~2023-12-18 | MM_ITS ---
EXAMINATION: MM SCREENING DIGITAL BREAST TOMOSYNTHESIS, BILATERAL CLINICAL INFORMATION: Screening. Asymptomatic. COMPARISON: Mammography: This study is compared with prior exams dating back to 2019. TECHNIQUE: Digital breast tomosynthesis is performed in both the craniocaudal and mediolateral oblique views along with computer-aided detection (CAD). Synthesized 2D images are generated from the tomosynthesis. FINDINGS: The breasts are heterogeneously dense, which may obscure small masses (ACR BI-RADS breast composition Category c). There are no significant masses, abnormal calcifications, or other abnormalities. There is a tissue marker in the right breast from prior benign percutaneous biopsy. MM/MM tomosynthesis screening BI IMPRESSION: No mammographic evidence of malignancy. ASSESSMENT: BI-RADS BI-RADS 2 - Benign Findings RECOMMENDATION: Routine annual mammography screening. 1 year F/U This examination should not preclude the clinical evaluation of a suspicious palpable abnormality. This patient's information was entered into a reminder system with a target due date for their next mammogram.
== END 2023-12-18 08:16 | disposition home or self-care (01) ==
LOC: HO.MAMMO 08:15
PROVIDERS: PCP Internal Medicine; Visit Provider Internal Medicine
DX: Z12.31 Encounter for screening mammogram for malignant neoplasm of breast (principal)
CPT/HCPCS: 77063; 77067

== ENCOUNTER → 2023-12-18 08:45 | Outpatient (BNV) | payer OTHER, SELFPAY | PROVIDERS: PCP Internal Medicine; Visit Provider Radiology Diagnostic Radiology | DX: Z12.31 Encounter for screening mammogram for malignant neoplasm of breast (principal) | CPT/HCPCS: 77063; 77067 ==

== ENCOUNTER 2024-01-20 15:18 | Outpatient (REF) | payer OTHER, SELFPAY ==
[2024-01-27 20:44] LABS: HPV mRNA E6/E7 rflx Not Detected (Not Detected)
== END 2024-01-20 15:19 | disposition home or self-care (01) ==
LOC: HO.LNP 15:18
PROVIDERS: PCP Internal Medicine; Visit Provider Obstetrics & Gynecology
DX: Z01.419 Encounter for gynecological examination (general) (routine) without abnormal findings (principal)
CPT/HCPCS: 87624; 88142

== ENCOUNTER 2024-01-20 15:18 | Outpatient (AMB) | payer OTHER, SELFPAY ==
--- NOTE | 2024-01-20 15:11 | A.OFFVIS_ITS ---
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 No complaints. Last Pap/HPV was in 11/26 Last Mammogram was BI-RADS 2 in 12/31 The patient is scheduled for a screening Colonoscopy in few weeks [facility] Medical History (Updated 01/20/24 @ 15:26 by Manuel Kaye MD) Lumbar pain Hypovitaminosis D Dyslipidemia Diabetes mellitus Essential hypertension Surgical History History of mammogram History of laparoscopic cholecystectomy History of tubal ligation Family History Father Diabetes Hypertension Mother Hypertension Social History Housing: House Alcohol intake: current Alcohol intake frequency: a few times a week Alcohol type: wine and hard liquor Patient Tobacco Use Status: Current everyday Tobacco user Tobacco use type: Cigarette Cigarettes Per Day: 7 e-Cigarette/Vaping Use: Never Used Second Hand Smoke Exposure: No service: No Current occupational status: employed Current occupational exposures/hazards: No Cognitive needs: No Hearing needs: No Vision needs: No Female Reproductive History Menstrual control method: permanent sterilization Menopause type: natural Total pregnancies: 3 Full term: 2 Number of Living Children: 2 Ab spontaneous: 1 Date of last pap smear: 11/26/18 Date of Mammogram: 12/18/23 Review of Systems Const All systems reviewed & are unremarkable except as noted in HPI and below Card Reports as per HPI Resp Reports as per HPI GI Reports as per HPI and Reports no additional complaints Reports as per HPI Physical Exam Vital Signs: Last Vital Signs BP 134/86 01/20/24 15:13 BMI result Body Mass Index 27.6 Const General: cooperative, healthy appearing and comfortable Chest Chest palpation & inspection: normal inspection of the chest and normal palpation of entire chest wall Breast/axilla inspection: normal inspection of the breasts and normal inspection of the axillae Breast/axilla palpation: normal palpation of the breasts, normal palpation of the axillae and no axillary lymphadenopathy Resp Effort & Inspection: normal respiratory effort Auscultation: clear to auscultation bilaterally Percussion: percussion normal Cardio Palpation: normal PMI Rate: regular rate Rhythm: regular rhythm Heart sounds: no murmurs and no rubs Peripheral pulses: Peripheral pulses 2+ throughout GI Inspection: Yes normal to inspection Palpation (GI): Soft to palpation, nontender, no guarding, not rigid and No hepatosplenomegaly present Percussion: Yes normal to percussion Auscultation: normal bowel sounds Rectal Exam - Female: deferred General: Yes bladder normal to palpation External Female Exam: No lesion Speculum Exam - Vagina: normal appearance of the vagina, normal palpation, normal vaginal discharge and not erythematous Speculum Exam - Cervix: normal appearance of the cervix and normal palpation Bimanual exam- vagina & uterus: normal bimanual exam, normal palpation, uterine size normal, bladder normal to palpation, consistency normal and normal palpation Bimanual Exam- Adnexa, other: normal adnexae, no masses and no tenderness Assessment & Plan Assessment & Plan (1) Well woman exam: Code(s): Z01.419 - Encounter for gynecological examination (general) (routine) without abnormal findings Category: Medical Plan: Co testing done. Counseled the patient about the recommended dietary allowance of 1200 mg of Calcium & 600 IU of vitamin D. Instructions given the patient to schedule next screen Mammogram in 01/01. The patient is scheduled with GI for screening colonoscopy in few weeks . The patient was instructed to perform monthly self-breast exams and schedule annual exam in a year. All questions answered and the patient verbalized understanding. Coding Level of Care Code New Pt Prev Care 40-64y(27331) Diagnoses Well woman exam Z01.419
[2024-01-20 15:13] VITALS: BP 134/86; BMI 27.6
== END 2024-01-20 16:13 | disposition home or self-care (01) ==
PROVIDERS: PCP Internal Medicine; Visit Provider Obstetrics & Gynecology
DX: Z01.419 Encounter for gynecological examination (general) (routine) without abnormal findings (principal)
CPT/HCPCS: 99386

== ENCOUNTER 2024-02-29 08:23 | Day surgery (SDC) | payer OTHER, SELFPAY ==
[2024-02-29 09:20] VITALS: BMI 27.5
[2024-02-29 09:30] VITALS: BP 153/67; PULSE 73; RESP 16; TEMP 36.4; O2SAT 98
[2024-02-29 09:40] LABS: Glucose, Whole Blood 126 mg/dL (60-115)
--- NOTE | 2024-02-29 09:43 | MHC.SHP ---
Pre-Procedural Eval Section A - 24 Hr Update-Section A only Date of Service: 02/29/24 The patient is an INPATIENT: No The patient has been examined within 24 hours of the surgical procedure. The History & Physical has been completed within 30 days and I have reviewed it.: No Section B - Complete if H&P > 30 days Chief Complaint: Surveillance for colon polyps, constipation Relevant Family History (Specify if Yes): No Relevant Social History: Tobacco Use Present Medications: see Short Stay Collaborative assessment Medical History: Significant History (Diabetes mellitus Dyslipidemia Essential hypertension Hypovitaminosis D Lumbar pain) History of Previous Operations: Relevant previous surgery/procedure and date(s) (History of laparoscopic cholecystectomy History of mammogram History of tubal ligation) Allergies: Allergies Allergy/AdvReac Type Severity Reaction Status Date / Time No Known Allergies Allergy Verified 02/29/24 09:19 Review of Systems Sugical H&P ROS: Negative: Constitution, Cardiovascular and Respiratory and Yes, Specify: Gastrointestinal (constipation) Exam Surgical H&P Exam: Normal: Heart, Normal: Lungs, Normal: Extremities and Normal: Abdomen Plan Diagnosis/Plan: Unchanged I have reviewed the history and physical and performed a pertinent physical examination on my patient. No changes have occurred unless specified. Time Spent With Patient Time: Total time managing care of this patient today ____ minutes.
--- NOTE | 2024-02-29 09:46 | HO.ANESPROP2 ---
[facility] Active Problems Active Problems: All Active Problems Well woman exam (Acute) Physical exam (Acute) Screening for cervical cancer (Acute) Chronic idiopathic constipation (Acute) Osteoarthritis of right knee (Acute) Hydronephrosis (Acute) Right ureteral stone (Acute) Bilateral kidney stones (Acute) Knee osteoarthritis (Acute) Right knee pain (Acute) Left knee pain (Acute) Right upper quadrant abdominal pain (Acute) Low TSH level (Acute) Varicose veins of right lower extremity with inflammation (Acute) Adult general medical exam (Acute) Bilateral knee pain (Acute) Varicose vein of leg (Acute) Screening for colon cancer (Acute) Lumbar pain (Acute) Hypovitaminosis D (Acute) Dyslipidemia (Acute) Diabetes mellitus (Acute) Essential hypertension (Acute) Past Medical History Medical History (Updated 01/20/24 @ 15:26 by Manuel Kaye MD) Lumbar pain Hypovitaminosis D Dyslipidemia Diabetes mellitus Essential hypertension Family History Family History Father Diabetes Hypertension Mother Hypertension Family history of problems with anesthesia: No Surgical History Surgical History History of mammogram History of laparoscopic cholecystectomy History of tubal ligation History of Problems with Anesthesia: No Social History Social History Housing: House Alcohol intake: current Alcohol intake frequency: a few times a week Alcohol type: wine and hard liquor Patient Tobacco Use Status: Current everyday Tobacco user Tobacco use type: Cigarette Cigarettes Per Day: 7 e-Cigarette/Vaping Use: Never Used Second Hand Smoke Exposure: No Use of substances other than those prescribed or required for medical reasons: No Are you DNR?: No Advance Directives: No Advance Directives Information Provided: Yes service: No Current occupational status: employed Current occupational exposures/hazards: No Cognitive needs: No Hearing needs: No Vision needs: No Meds Allergies Allergy/AdvReac Type Severity Reaction Status Date / Time No Known Allergies Allergy Verified 02/29/24 09:19 Home Medications ?Medication ?Instructions ?Recorded ?Confirmed ?Last Taken ?Type linaclotide 145 mcg capsule 145 mcg PO DAILY PRN irritable 05/29/23 02/29/24 Unknown History (Linzess) bowel sennosides 8.6 mg tablet (senna) 8.6 mg PO BEDTIME PRN constipation 05/29/23 02/29/24 Unknown History Exam Height,Weight and Vital Signs: Height 5 ft 4 in Weight 72.575 kg Last Vital Signs Temp 97.5 F 02/29/24 09:30 Pulse 73 02/29/24 09:30 Resp 16 02/29/24 09:30 BP 153/67 H 02/29/24 09:30 Pulse Ox 98 02/29/24 09:30 O2 Del Method Room Air 02/29/24 09:30 Pertinent Lab Results Pertinent Lab Results: Laboratory Tests 02/29/24 09:37 POC Glucose 126 H Airway Mallampati Class: II TM Dist: >3cm Neck ROM: Full Heart: rrr Lungs: cta Assessment and Plan Assessment Anesthesia Assessment: Anesthesia Plan Discussed and Chart Reviewed Final Anesthetic Review Family History of Problems with Anesthesia: No History of Problems with Anesthesia: No NPO: Yes ASA Class: II Final Preanesthetic Review: No Changes in Pt Med Stat, Meds/Allgs Chart Reviewed and Consent Obtained/Reviewed Patient Risk: Low Procedure Risk: Low Anesthetic Plan Anesthetic Plan: MAC: Disposition: Standard PACU
[2024-02-29 11:50] VITALS: PULSE 62; RESP 16; TEMP 36.1; O2SAT 97
--- NOTE | 2024-02-29 11:51 | HO.OPN-COLON ---
Colonoscopy Operative Note Operative Note Date of Service: 02/29/24 Narrative: COLONOSCOPY TILL CECUM WITH SNARE POLYPECTOMY AND SUBMUCOSAL INJECTION Pre-op diagnosis: Surveillance for colon polyps. Post-op diagnosis:? Colon polyps, Diverticulosis, hemorrhoids Endoscopist:? Monika Powell MD Anesthesia:?MAC Consent: Indications for the procedure and potential complications of bleeding, perforation, reaction to medications and missed diagnosis were discussed with the patient and informed consent was obtained. Instrument: Olympus PCF H 190 L variable stiffness pediatric colonoscope Monitoring: Vital signs and clinical assessment, intermittent blood pressure monitoring, continuous EKG monitoring, Pulse oximetry and Carbon Dioxide monitoring were done throughout the procedure. Please see anesthesia flowsheet. Colon withdrawl time was 32 minutes. Procedure: The patient was placed in the left lateral decubitis position and pre-procedure medications were administered. After a digital rectal examination of the ano-rectum, the video colonoscope was inserted into the rectum and advanced through the colon to the cecum. The colonoscope was slowly withdrawn in a retrograde panoramic fashion and the colon mucosa was carefully examined including a retroflexed view of the rectum. Findings and interventions are described below. Procedure Difficulty: without difficulty Findings: Terminal Ileum: Not evaluated Cecum: Normal Ascending Colon: A 4-5 mm sessile polyp in the proximal AC - removed with a cold biopsy. A 12 -15 mm sessile polyp in the mid AC - removed with a hot snare. A 2 cms sessile polyp in the distal AC at 70 cms (overlying a fold) - removed with a hot snare. Polypectomy site was marked with Nancy ink. Scattered moderate diverticulosis throughout the entire colon Transverse Colon: A 7-8 mm sessile polyp - removed with a cold snare. A 15 mm sessile polyp in the proximal TC - removed with hot snare. A 15 mm flat polyp at 60 cms. Polyp was raised with 2 cc of [place] and removed with a stiff hot snare. A 12 - 15 mm sessile polyp at 60 cms - removed with a stiff hot snare. Scattered moderate diverticulosis throughout the entire colon Descending Colon: A 12-15 mm sessile polyp - removed with a stiff hot snare. Scattered moderate diverticulosis throughout the entire colon Sigmoid Colon: Moderate diverticulosis Rectum: Normal Ano-rectum: Normal Colon preparation: Good after copious irrigation. [place] Bowel Preparation Scale Right colon; 2 Transverse colon: 2 Left colon; 2 (0 = Unprepared colon segment with mucosa not seen due to solid stool that cannot be cleared. 1 = Portion of mucosa of the colon segment seen, but other areas of the colon segment not well seen due to staining, residual stool and/or opaque liquid. 2 = Minor amount of residual staining, small fragments of stool and/or opaque liquid, but mucosa of colon segment seen well. 3 = Entire mucosa of colon segment seen well with no residual staining, small fragments of stool or opaque liquid) Impression and Post Procedure Diagnosis: Colonoscopy Findings: EIght small to medium sized polyps were removed A few smaller polyps in the left colon - not removed due to excessive length of the procedure. Moderate diverticulosis seen in the entire colon Plan: Pt has a FU appointment on 03/18/24 with Natty Byrnes NP Repeat Colonoscopy in 1 year if polyps are adenomatous and due to a hx of adenomatous colon polyps. Above findings were reviewed with the patient and relevant handouts were given and the discharge area.
[2024-02-29 12:05] VITALS: BP 156/84; PULSE 74; RESP 18; TEMP 36.1; O2SAT 98
== END 2024-02-29 12:44 | disposition home or self-care (01) ==
PROVIDERS: PCP Internal Medicine; Visit Provider Internal Medicine Gastroenterology
PROC: 0DJD8ZZ Inspection of Lower Intestinal Tract, Via Natural or Artificial Opening Endoscopic (ICD-10-PCS; CPT 45378; principal; 2024-02-29 10:10)
DX: Z12.11 Encounter for screening for malignant neoplasm of colon (principal); Z86.010 Personal history of colon polyps; D12.2 Benign neoplasm of ascending colon; D12.3 Benign neoplasm of transverse colon; D12.4 Benign neoplasm of descending colon; K57.30 Diverticulosis of large intestine without perforation or abscess without bleeding; K64.8 Other hemorrhoids; K59.01 Slow transit constipation; I10 Essential (primary) hypertension; E78.5 Hyperlipidemia, unspecified; E55.9 Vitamin D deficiency, unspecified; E11.9 Type 2 diabetes mellitus without complications; Z79.899 Other long term (current) drug therapy; Z98.890 Other specified postprocedural states; F17.210 Nicotine dependence, cigarettes, uncomplicated
CPT/HCPCS: 45385; 45380; 45381; 82947; 88305; J2704

== ENCOUNTER → 2024-02-29 08:23 | Outpatient (BNV) | payer OTHER, SELFPAY | PROVIDERS: PCP Internal Medicine; Visit Provider Internal Medicine Gastroenterology | DX: Z12.11 Encounter for screening for malignant neoplasm of colon (principal); Z86.010 Personal history of colon polyps; D12.3 Benign neoplasm of transverse colon; D12.4 Benign neoplasm of descending colon; D12.2 Benign neoplasm of ascending colon; K57.90 Diverticulosis of intestine, part unspecified, without perforation or abscess without bleeding | CPT/HCPCS: 45380; 45381; 45385 ==

== ENCOUNTER 2024-03-18 07:58 | Outpatient (AMB) | payer OTHER, SELFPAY ==
--- NOTE | 2024-03-18 08:01 | A.OFFVIS_ITS ---
Vital Signs 03/18/24 08:02 Height 5 ft 4 in Weight 162 lb 11.218 oz BMI 27.9 BP 138/88 Blood Pressure Location Rt brachial Position Sitting Pulse 76 Pulse Source Pulse Oximeter Pulse Oximetry (%) 97 Oxygen Delivery Method Room Air Intake Visit Reasons: s/p colon Intake Note: Della presents in office today for a scheduled post op FUV. CC; Pt denies any complications or new concerns post op. Pt is here to discuss the results of their recent s/p. Slot Operations Manager Required: Yes Slot Operations Manager Services: Slot Operations Manager Offered & Declined Accompanied by: Self / Same As Patient Allergies No Known Allergies Allergy (Verified 03/18/24 08:02) HPI HPI s/p colon: Details: LAST VISIT Constipation Patient reports constipation. Senokot is not working for her. Will start Linzess. Patient also reports right upper quadrant pain, however negative exam. Negative Jacobs sign. Most likely gas trapping pain. Hyperactive bowels. Pain not related to meals. Patient was encouraged to increase fluid intake and activity to promote better bowel motility. Screening for colon cancer Patient denies any GI, cardiac or respiratory symptoms.? Patient reports to have history of constipation, Senokot is not helping. She will be started on Linzess 145 mcg daily. Patient will call our office if she continues to be constipated or if it will cause diarrhea. Patient denies any issues with anesthesia in the past.? Denies any history of sleep apnea.? No history infectious diseases in the past or present.? Not on any anticoagulation therapy.? No family or personal history of colon cancer. History of of colonoscopy over 5 years ago patient was found to have 3 polyps.? Patient denies melena, hematochezia, unintentional weight loss or ribbon like stools.? Discussed at length the pre-procedure,? prep, diet & medications as well as what to expect prior, during and after the procedure.?? Stressed the importance of good bowel prep. ?Recommended the use of Vaseline or Calmoseptine OTC & baby wipes with bowel movements to promote comfort.? ?Patient verbalizes understanding and agrees to plan of care.? She was given the opportunity to ask questions and all questions answered.? We will see her after the procedure.? Plan Medications New linaclotide (Linzess) 145 mcg PO DAILY 30 caps 2RF bisacodyl (Dulcolax (bisacodyl)) take 2 tabs at noon the day before your colonoscopy 10 mg (2 x 5 mg) PO ONCE 4 tabs 0RF 1 day Z12.11 - Encounter for screening for malignant neoplasm of colon polyethylene glycol 3350 (Miralax) As directed by gastroenterology department at [facility] 238 grams PO ONCE 238 grams 0RF Z12.11 - Encounter for screening for malignant neoplasm of colon COLONOSCOPY Findings: Terminal Ileum: Not evaluated Cecum: Normal Ascending Colon: A 4-5 mm sessile polyp in the proximal AC - removed with a cold biopsy. A 12 -15 mm sessile polyp in the mid AC - removed with a hot snare. A 2 cms sessile polyp in the distal AC at 70 cms (overlying a fold) - removed with a hot snare. Polypectomy site was marked with Nancy ink. Scattered moderate diverticulosis throughout the entire colon Transverse Colon: A 7-8 mm sessile polyp - removed with a cold snare. A 15 mm sessile polyp in the proximal TC - removed with hot snare. A 15 mm flat polyp at 60 cms. Polyp was raised with 2 cc of Eleview and removed with a stiff hot snare. A 12 - 15 mm sessile polyp at 60 cms - removed with a stiff hot snare. Scattered moderate diverticulosis throughout the entire colon Descending Colon: A 12-15 mm sessile polyp - removed with a stiff hot snare. Scattered moderate diverticulosis throughout the entire colon Sigmoid Colon: Moderate diverticulosis Rectum: Normal Ano-rectum: Normal Colon preparation: Good after copious irrigation. Taylor Bowel Preparation Scale Right colon; 2 Transverse colon: 2 Left colon; 2 (0 = Unprepared colon segment with mucosa not seen due to solid stool that cannot be cleared. 1 = Portion of mucosa of the colon segment seen, but other areas of the colon segment not well seen due to staining, residual stool and/or opaque liquid. 2 = Minor amount of residual staining, small fragments of stool and/or opaque liquid, but mucosa of colon segment seen well. 3 = Entire mucosa of colon segment seen well with no residual staining, small fragments of stool or opaque liquid) Impression and Post Procedure Diagnosis: Colonoscopy Findings: EIght small to medium sized polyps were removed A few smaller polyps in the left colon - not removed due to excessive length of the procedure. Moderate diverticulosis seen in the entire colon Plan: Pt has a FU appointment on 03/18/24 with Natty Byrnes NP Repeat Colonoscopy in 1 year if polyps are adenomatous and due to a hx of adenomatous colon polyps. PATHOLOGY: Diagnosis A. Colon, transverse, polypectomies (2): Fragments of tubular adenomata; negati ve for high-grade dysplasia or carcinoma. B. Colon, transverse, polypectomies at 60 cm (2): Hyperplastic mucosal polyp and colonic mucosa with surface hyperplastic changes; thermal artifact present. C. Colon, ascending, polypectomy: Tubular adenoma; negative for high-grade dysplasia or carcinoma. D. Colon, ascending at 70 cm, polypectomy: Tubular adenoma; negative for high- grade dysplasia or carcinoma. E. Colon, descending, polypectomy: Tubular adenoma; negative for high-grade dysplasia or carcinoma TODAY'S VISIT: Patient is here today for follow-up. Patient reports to be feeling well after the procedure. Denies any ill effects from the prep, anesthesia or procedure itself. Patient denies melena, hematochezia. Reports that she has been constipated. Takes 1 senna daily, however she does not feel like she empties her bowels completely. Patient denies any dyspepsia, dysphagia or odynophagia. Colonoscopy results discussed with patient as well as biopsy results. Total 8 polyps found tubular adenoma and recommendation was made for patient to return for colonoscopy in 1 year. [facility] Medical History (Updated 03/18/24 @ 08:30 by Emilee Byrnes, [facility]-) Diverticulosis Tubular adenoma of colon Lumbar pain Hypovitaminosis D Dyslipidemia Diabetes mellitus Essential hypertension Surgical History History of mammogram History of laparoscopic cholecystectomy History of tubal ligation Family History Father Diabetes Hypertension Mother Hypertension Social History Housing: House Alcohol intake: current Alcohol intake frequency: a few times a week Alcohol type: wine and hard liquor Patient Tobacco Use Status: Current everyday Tobacco user Tobacco use type: Cigarette Cigarettes Per Day: 7 e-Cigarette/Vaping Use: Never Used Second Hand Smoke Exposure: No service: No Current occupational status: employed Current occupational exposures/hazards: No Cognitive needs: No Hearing needs: No Vision needs: No Review of Systems Const Denies weight gain and Denies weight loss ENT Reports no additional complaints, Denies dysphagia and Denies odynophagia Card Reports no additional complaints Resp Reports no additional complaints GI Denies abdominal pain, Denies belching, Denies melena, Denies bloating, Reports constipation, Denies dysphagia, Denies excessive flatus, Denies dyspepsia, Denies heartburn, Denies diarrhea, Denies loose stools, Denies nausea, Denies odynophagia and Denies vomiting Reports no additional complaints Musc Reports no additional complaints Neuro Reports no additional complaints Psych Reports no additional complaints Endo Reports no additional complaints Physical Exam Vital Signs: Last Vital Signs Pulse 76 03/18/24 08:02 BP 138/88 03/18/24 08:02 Pulse Ox 97 03/18/24 08:02 Oxygen Delivery Method Room Air 03/18/24 08:02 BMI result Body Mass Index 27.9 Const General: healthy appearing, no acute distress and well developed Nutritional Appearance: well nourished Orientation/consciousness: patient oriented x3 Resp Effort & Inspection: normal respiratory effort, able to speak in complete sentences, no tracheal deviation and symmetric chest movement Auscultation: clear to auscultation bilaterally Cardio Rate: regular rate Heart sounds: S1 normal heart sound present and S2 normal heart sound present GI Inspection: Yes normal to inspection and No distended Auscultation: normal bowel sounds General: Yes no CVA tenderness Back/Spine/Pelvis Back: no CVA tenderness Skin General skin exam: elasticity normal, turgor normal and dry skin Neuro General: patient oriented x3 Psych Appearance: grossly normal Mental Status: mental status grossly normal Assessment & Plan Assessment & Plan (1) Chronic idiopathic constipation: Code(s): K59.04 - Chronic idiopathic constipation Category: Medical (2) Tubular adenoma of colon: Code(s): D12.6 - Benign neoplasm of colon, unspecified Category: Medical (3) Diverticulosis: Code(s): K57.90 - Diverticulosis of intestine, part unspecified, without perforation or abscess without bleeding Category: Medical (4) Status post colonoscopy: Code(s): Z98.890 - Other specified postprocedural states Plan Moderate diverticulosis of sigmoid colon. Increase fiber. Increase fluid intake and activity to promote better bowel motility. Patient can take senna 2 tablets every evening to help her move her bowels better. Discussed with patient the importance of high-fiber diet. List of food high in fiber given to patient. Patient can also take probiotics. Colonoscopy in 1 year due to amount of polyps and there size. Patient will return in 6 months, sooner on as needed basis. She is agreeable to this plan and verbalizes understanding of instructions. She was given the opportunity to ask questions and all questions answered. Thank you for allowing me to participate in her care Medications: Changed From sennosides 8.6 mg PO BEDTIME PRN constipation To sennosides (senna) 17.2 mg (2 x 8.6 mg) PO BEDTIME 60 tabs 0RF constipation Coding Level of Care Code Est Pt Level 3 (13048) Diagnoses Chronic idiopathic constipation K59.04 Tubular adenoma of colon D12.6 Diverticulosis K57.90 Status post colonoscopy Z98.890 Time Spent (min) 30 Comment 20 minutes spent with patient and additional 10 minutes spent reviewing her records
[2024-03-18 08:02] VITALS: BP 138/88; PULSE 76; O2SAT 97; BMI 27.9
== END 2024-03-18 08:34 | disposition home or self-care (01) ==
PROVIDERS: PCP Internal Medicine; Visit Provider Nurse Practitioner Family
DX: K59.04 Chronic idiopathic constipation (principal); D12.6 Benign neoplasm of colon, unspecified; K57.90 Diverticulosis of intestine, part unspecified, without perforation or abscess without bleeding; Z98.890 Other specified postprocedural states
CPT/HCPCS: 99213

== ENCOUNTER → 2024-03-18 07:58 | Outpatient (BNVA) | payer OTHER, SELFPAY | PROVIDERS: PCP Internal Medicine; Visit Provider Nurse Practitioner Family ==

== ENCOUNTER 2024-04-21 16:47 | Outpatient (AMB) | payer OTHER, SELFPAY ==
[2024-04-21 16:59] VITALS: BP 130/70; BMI 27.5
--- NOTE | 2024-04-21 16:59 | MHC.PC.OV ---
Vital Signs 04/21/24 16:59 Height 5 ft 4 in Weight 160 lb BMI 27.5 BP 130/70 Blood Pressure Location Lt brachial Position Sitting Intake Visit Reasons: 4 MONTHS Intake Note: Patient here for a 4 month follow up Swine Genetics Researcher Required: No Accompanied by: Self / Same As Patient Allergies No Known Allergies Allergy (Verified 04/21/24 17:20) Medication List - Last Reconciled 04/21/24 by Iman Garzon MD atorvastatin 10 mg PO BEDTIME 90 days cholecalciferol (vitamin D3) 25 mcg PO DAILY 90 days hydrochlorothiazide 25 mg PO DAILY 90 days linaclotide (Linzess) 145 mcg PO DAILY PRN lisinopril 10 mg PO DAILY 90 days metformin 500 mg PO BID 90 days sennosides (senna) 17.2 mg (2 x 8.6 mg) PO BEDTIME Tobacco use date assessed: 09/21/23 Fall risk assessment: No Falls in past year Last assessed Fall Risk: 04/21/24 Dental Screening Dental Screen Date: 04/21/24 Did you have a dental visit in the last 12 months?: No Did you have a dental problem in the last 6 months where you did not have access to dental care?: No Was dental information given to patient?: Patient has dentist HPI HPI Comments History of Present Illness Details This is a 63-year-old female with diabetes mellitus type 2, hypertension, dyslipidemia and chronic idiopathic constipation that comes today for follow-up on her conditions. A1c within goal. Blood pressure stable. Last LDL was within goal. Still has some constipation problems even with Linzess and this is follow by Gastroenterology. Was advised to quit smoking. Denies any chest pain or shortness on breath. [facility] Medical History Diverticulosis Tubular adenoma of colon Lumbar pain Hypovitaminosis D Dyslipidemia Diabetes mellitus Essential hypertension Surgical History History of mammogram History of laparoscopic cholecystectomy History of tubal ligation Family History Father Diabetes Hypertension Mother Hypertension Social History Housing: House Alcohol intake: current Alcohol intake frequency: a few times a week Alcohol type: wine and hard liquor Patient Tobacco Use Status: Current everyday Tobacco user Tobacco use type: Cigarette Cigarettes Per Day: 7 e-Cigarette/Vaping Use: Never Used Second Hand Smoke Exposure: No service: No Current occupational status: employed Current occupational exposures/hazards: No Cognitive needs: No Hearing needs: No Vision needs: No Questionnaire Thrive Questionnaire Date Thrive assessed: 10/17/22 AUDIT C Alcohol Use Questionnaire (AUDIT-C) 1. How often do you have a drink containing alcohol?: Monthly or less 2. How many drinks containing alcohol do you have on a typical day when you are drinking?: 3 or 4 3. How often do you have six or more drinks on one occasion?: Weekly Total Score: 5 NANNETTE-7 AMB Questionnaire NANNETTE-7 Date NANNETTE - 7 assessed: 09/21/23 Source: Developed by Drs. Walker Johnson, Gillian Pitts, Rayo Abdi and colleagues, with an educational david from [employer]. Review of Systems Const All systems reviewed & are unremarkable except as noted in HPI and below Card Denies chest pain at rest, Denies chest pain with activity, Denies edema, Denies irregular heart rhythm, Denies claudication, Denies dyspnea, Denies dyspnea on exertion, Denies orthopnea, Denies paroxysmal nocturnal dyspnea and Denies slow heart rate Resp Denies cough, Denies dyspnea and Denies dyspnea on exertion GI Denies abdominal pain, Denies change in bowel habits, Denies excessive flatus, Denies nausea and Denies vomiting Denies urinary incontinence, Denies urinary hesitancy and Denies urinary urgency Musc Denies abnormal gait, Denies atrophy, Denies deformity and Denies limited range of motion Skin/Breast Denies bleeding lesions, Denies changing lesions and Denies rash Neuro Denies abnormal gait, Denies behavioral changes and Denies lack of coordination Psych Denies behavioral changes Physical exam (Primary Care) Vital Signs: Last Vital Signs BP 130/70 04/21/24 16:59 BMI result Body Mass Index 27.5 Tobacco/Smoking Status: Tobacco use Status Tobacco use date assessed 09/21/23 04/21/24 17:04 Patient Tobacco Use Status Current everyday Tobacco 04/21/24 17:04 Tobacco use type Cigarette 04/21/24 17:04 e-Cigarette/Vaping Use Never Used 04/21/24 17:04 Are you ready to quit: No Tobacco cessation counseling provided: Yes Items discussed: Nicotine replacement and QuitWorks Relapse Prevention: discussed the importance of a supportive environment, discussed negative mood or depression after quitting, weight gain after smoking is common and discussed dietary, exercise and/or lifestyle changes Number of minutes spent counselin CPT code: 95097 - 4-10 Minutes Thrive Assessment: Date of Thrive Assessment Date Thrive assessed 10/17/22 04/21/24 17:04 Resp Effort & Inspection: normal respiratory effort Auscultation: clear to auscultation bilaterally Cardio Jugular venous distension: no JVD Rate: regular rate Rhythm: regular rhythm Heart sounds: S1 normal heart sound present and S2 normal heart sound present Extrem General: Yes full ROM Results AMB Hemoglobin A1c AMB Hemoglobin A1c 6.1 % Last Edit by VIKTORIA Cedillo on 04/21/24 17:15 Results Reviewed Results Reviewed: Laboratory Last Values Hgb A1c (Clinic) 6.1 % (4.0-6.0) H 04/21/24 16:59 Assessment and Plan Assessment & Plan (1) Diabetes mellitus: Code(s): E11.9 - Type 2 diabetes mellitus without complications Qualifiers: Diabetes mellitus type: type 2 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 A1c goal is equal or less than 7%. (2) Essential hypertension: Code(s): I10 - Essential (primary) hypertension Plan: Continue lisinopril. Blood pressure goal is equal or less than 130/80. (3) Dyslipidemia: Code(s): E78.5 - Hyperlipidemia, unspecified Plan: Continue statins. LDL goal is less than 70. (4) Chronic idiopathic constipation: Code(s): K59.04 - Chronic idiopathic constipation Plan: Continue Linzess as needed. Orders: Orders Vitamin D 25-OH Total 4 Months E55.9 - Vitamin D deficiency, unspecified Microalbumin, Random (w Creat) 4 Months E11.9 - Type 2 diabetes mellitus without complications Comprehensive [place]. Panel Fast 4 Months E11.9 - Type 2 diabetes mellitus without complications AMB Hemoglobin A1c Today E11.9 - Type 2 diabetes mellitus without complications Lipid Panel 4 Months E78.5 - Hyperlipidemia, unspecified Coding Level of Care Code Est Pt Level 4 (81845) Complex EM visit Add On G2211 Diagnoses Type 2 diabetes mellitus without complication, without long-term current use of insulin E11.9 Diabetes mellitus type: type 2 Diabetes mellitus termite control service representative insulin use: without termite control service representative use Diabetes mellitus complication status: without complication Essential hypertension I10 Dyslipidemia E78.5 Chronic idiopathic constipation K59.04 Additional Codes Vital Signs *Quality* - CPT code: 90117 - 4-10 Minutes ([id number]) Time Spent (min) 23
== END 2024-04-21 17:28 | disposition home or self-care (01) ==
PROVIDERS: PCP Internal Medicine; Visit Provider Internal Medicine
DX: E11.9 Type 2 diabetes mellitus without complications (principal); I10 Essential (primary) hypertension; E78.5 Hyperlipidemia, unspecified; K59.04 Chronic idiopathic constipation
CPT/HCPCS: 83036; 99214; 99406

== ENCOUNTER 2024-09-05 16:46 | Outpatient (AMB) | payer OTHER, SELFPAY ==
[2024-09-05 16:54] VITALS: BP 146/80; BMI 27.5
--- NOTE | 2024-09-05 16:54 | MHC.PC.OV ---
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 Shadow Graph Weight Operator Language: Maple Syrup Maker Name: Iman Garzon MD Information Interpreted: non-clinical & clinical Accompanied by: Self / Same As Patient Allergies No Known Allergies Allergy (Verified 09/05/24 17:13) Medication List - Last Reconciled 09/05/24 by Iman Garzon MD atorvastatin 10 mg PO BEDTIME 90 days cholecalciferol (vitamin D3) 25 mcg PO DAILY 90 days hydrochlorothiazide 25 mg PO DAILY 90 days linaclotide (Linzess) 145 mcg PO DAILY PRN lisinopril 10 mg PO DAILY 90 days metformin 500 mg PO BID 90 days sennosides (senna) 17.2 mg (2 x 8.6 mg) PO BEDTIME Tobacco use date assessed: 09/05/24 Fall risk assessment: No Falls in past year Last assessed Fall Risk: 09/05/24 Dental Screening Dental Screen Date: 09/05/24 Did you have a dental visit in the last 12 months?: Yes Did you have a dental problem in the last 6 months where you did not have access to dental care?: No Was dental information given to patient?: Patient has dentist HPI HPI Comments History of Present Illness Details The patient is a 64-year-old female presenting with a follow-up for diabetes management and essential hypertension. She has been managing her diabetes with Metformin 500 mg twice daily. There is no indication of recent changes in her treatment regimen for diabetes. Her HbA1c was mentioned as 6.5, which is within acceptable control parameters. The patient expresses concerns regarding her blood pressure management. She is not currently ready to quit smoking, as she consumes tobacco mainly during weekends and in work-related situations. There was no indication of recent changes in her lifestyle, and she maintains certain habitual activities associated with her tobacco use. The patient also reports consuming wine and liquor a few times a week but did not express any explicit concerns about alcohol-related health effects at this time. No recent acute complications related to her diabetes or hypertension have been discussed. LDL within goal. On vitamin-D supplements for her low vitamin-D. [facility] Medical History Diverticulosis Tubular adenoma of colon Lumbar pain Hypovitaminosis D Dyslipidemia Diabetes mellitus Essential hypertension Surgical History History of mammogram History of laparoscopic cholecystectomy History of tubal ligation Family History Father Diabetes Hypertension Mother Hypertension Social History Housing: House Alcohol intake: current Alcohol intake frequency: a few times a week Alcohol type: wine and hard liquor Patient Tobacco Use Status: Current everyday Tobacco user Tobacco use type: Cigarette Cigarettes Per Day: 7 e-Cigarette/Vaping Use: Never Used Second Hand Smoke Exposure: No service: No Current occupational status: employed Current occupational exposures/hazards: No Cognitive needs: No Hearing needs: No Vision needs: No Questionnaire PHQ-9 Over the last 2 weeks, how often have you been bothered by any of the following problems? 1. Little interest or pleasure in doing things: not at all 2. Feeling down, depressed, or hopeless: not at all 3. Trouble falling or staying asleep, or sleeping too much: not at all 4. Feeling tired or having little energy: not at all 5. Poor appetite or overeating: not at all 6. Feeling bad about yourself - or that you are a failure or have let yourself or your family down: not at all 7. Trouble concentrating on things, such as reading the newspaper or watching television: not at all 8. Moving or speaking so slowly that other people could have noticed. Or the opposite - being so fidgety or restless that you have been moving around a lot more than usual: not at all 9. Thoughts that you would be better off or of hurting yourself in some way: not at all Total score: 0 Depression Screening Interpretation: Negative Depression Screening Done: Yes 09438 - PHQ-9 Billing: Yes Source: Developed by Drs. Walker Johnson, Gillian Pitts, Rayo Abdi and colleagues, with an educational david from [employer]. Thrive Questionnaire Date Thrive assessed: 09/05/24 I am a: Patient What is your living situation today?: I have a steady place to live Within the past 12 months, did the food you bought not last and you didn't have the money to get more?: Never true Within the past 12 months, did you worry whether your food would run out before you got money to buy more?: Never true Do you have trouble paying for medicines?: No Do you have trouble getting transportation to medical appointments?: No Do you have trouble paying your heating and electricity bill?: No Do you have trouble taking care of your child, family member or friend?: No Do you have trouble with day-to-day activities such as bathing, preparing meals, shopping, managing finances, etc.?: No Are you currently unemployed and looking for a job?: No Are you interested in more education?: No Please select the resources that you would like help with: None Currently or been in a relationship where the following occur: No concerns reported THRIVE Score: 0 AUDIT C Alcohol Use Questionnaire (AUDIT-C) 1. How often do you have a drink containing alcohol?: Monthly or less 2. How many drinks containing alcohol do you have on a typical day when you are drinking?: 1 or 2 3. How often do you have six or more drinks on one occasion?: Never Total Score: 1 Score Reviewed/Action Taken: No NANNETTE-7 AMB Questionnaire NANNETTE-7 Date NANNETTE - 7 assessed: 09/05/24 Feeling nervous, anxious, or on edge: 0 = Not at all Not being able to stop or control worryin = Not at all Worrying too much about different things: 0 = Not at all Trouble relaxin = Not at all Being so restless that it is hard to sit still: 0 = Not at all Becoming easily annoyed or irritable: 0 = Not at all Feeling afraid as if something awful might happen: 0 = Not at all Total NANNETTE-7 score (0-4 normal; 5-9 mild; 10-14 moderate; 15-21 severe): 0 Source: Developed by Drs. Walker Johnson, Gillian Pitts, Rayo Abdi and colleagues, with an educational david from [employer]. NANNETTE-7 Assessment Billing NANNETTE-7 Assessment Tool: NANNETTE-7 Assessment 34123 Review of Systems Const All systems reviewed & are unremarkable except as noted in HPI and below Card Denies chest pain at rest, Denies chest pain with activity, Denies edema, Denies irregular heart rhythm, Denies claudication, Denies dyspnea, Denies dyspnea on exertion, Denies orthopnea, Denies paroxysmal nocturnal dyspnea and Denies slow heart rate Resp Denies cough, Denies dyspnea and Denies dyspnea on exertion GI Denies abdominal pain, Denies change in bowel habits, Denies excessive flatus, Denies nausea and Denies vomiting Physical exam (Primary Care) Vital Signs: Last Vital Signs BP 146/80 H 09/05/24 16:54 BMI result Body Mass Index 27.5 Tobacco/Smoking Status: Tobacco use Status Tobacco use date assessed 09/05/24 09/05/24 17:02 Patient Tobacco Use Status Current everyday Tobacco 09/05/24 16:55 Tobacco use type Cigarette 09/05/24 16:55 e-Cigarette/Vaping Use Never Used 09/05/24 16:55 Are you ready to quit: No Tobacco cessation counseling provided: Yes Items discussed: Nicotine replacement and QuitWorks Relapse Prevention: discussed the importance of a supportive environment, discussed extending NRT, discussed negative mood or depression after quitting, weight gain after smoking is common and discussed dietary, exercise and/or lifestyle changes Number of minutes spent counselin CPT code: 29238 - 4-10 Minutes PHQ-9: PHQ-9 Score PHQ-9: Total score 0 09/05/24 17:16 Depression Screening Interpretation: Negative Thrive Assessment: Date of Thrive Assessment Date Thrive assessed 09/05/24 09/05/24 17:04 Currently or been in a relationship where the following occur: No concerns reported Resp Effort & Inspection: normal respiratory effort Auscultation: clear to auscultation bilaterally Cardio Jugular venous distension: no JVD Rate: regular rate Rhythm: regular rhythm Heart sounds: S1 normal heart sound present and S2 normal heart sound present Extrem General: Yes full ROM Results AMB Hemoglobin A1c AMB Hemoglobin A1c 6.5 % Last Edit by VIKTORIA Cedillo on 09/05/24 17:05 Results Reviewed Results Reviewed: Laboratory Last Values Hgb A1c (Clinic) 6.5 % (4.0-6.0) H 09/05/24 17:05 Coding Level of Care Code Est Pt Level 4 (46861) Complex EM visit Add On G2211 Diagnoses Type 2 diabetes mellitus without complication, without long-term current use of insulin E11.9 Diabetes mellitus type: type 2 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: without termite treater helper use Diabetes mellitus complication status: without complication Essential hypertension I10 Dyslipidemia E78.5 Hypovitaminosis D E55.9 Additional Codes NANNETTE-7 Assessment Billing - NANNETTE-7 Assessment Tool: NANNETTE-7 Assessment 87063 ([id number]) PHQ-9 - 32024 - PHQ-9 Billing: Yes ([id number]) Vital Signs *Quality* - CPT code: 20555 - 4-10 Minutes ([id number]) Time Spent (min) 25 Assessment & Plan Assessment & Plan (1) Diabetes mellitus: Code(s): E11.9 - Type 2 diabetes mellitus without complications Category: Medical Qualifiers: Diabetes mellitus type: type 2 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 - Continue monitoring for blood pressure management; patient is aware of the ongoing management without immediate changes discussed. - Discussed smoking cessation, patient not ready to quit currently. Patient was informed and verbally consented to the use of an ambient scribe for clinic note documentation during this visit. During the consultation, I reviewed the patient's current diabetes management plan, emphasizing the acceptable control demonstrated by her HbA1c level of 6.5. We discussed her smoking habits, and she acknowledged her current lack of readiness to quit. I advised continuing her current blood pressure management plan, as there were no immediate concerns raised. I mentioned the availability of pain management services, which the patient declined at this time. No new medications or significant changes were made during this visit. Recommendations for maintaining dietary and exercise habits were reinforced as part of the routine health maintenance discussions. Orders: Orders AMB Hemoglobin A1c Today E11.9 - Type 2 diabetes mellitus without complications Comprehensive [place]. Panel Fast 3 Months M17.9 - Osteoarthritis of knee, unspecified Lipid Panel 3 Months E78.5 - Hyperlipidemia, unspecified Microalbumin, Random (w Creat) 3 Months R80.9 - Proteinuria, unspecified Patient Instructions: - Continue taking Metformin as prescribed. - Monitor blood pressure regularly. - Be conscious of lifestyle habits, aiming for moderation in alcohol consumption. - Consider the benefits of smoking cessation; revisit when ready. - Routine follow-up visit should be scheduled as previously planned.
== END 2024-09-05 17:20 | disposition home or self-care (01) ==
PROVIDERS: PCP Internal Medicine; Visit Provider Internal Medicine
DX: E11.9 Type 2 diabetes mellitus without complications (principal); I10 Essential (primary) hypertension; E78.5 Hyperlipidemia, unspecified; E55.9 Vitamin D deficiency, unspecified

== ENCOUNTER → 2024-09-05 16:46 | Outpatient (BNVA) | payer OTHER, SELFPAY | PROVIDERS: PCP Internal Medicine; Visit Provider Internal Medicine | DX: E11.9 Type 2 diabetes mellitus without complications (principal); I10 Essential (primary) hypertension; E78.5 Hyperlipidemia, unspecified; E55.9 Vitamin D deficiency, unspecified; Z79.84 Long term (current) use of oral hypoglycemic drugs | CPT/HCPCS: 83036; 96127 ==

== ENCOUNTER 2024-11-15 07:31 | Outpatient (REF) | payer OTHER, SELFPAY ==
[2024-11-15 08:27] LABS: Alanine Aminotransferase 22 U/L (0-31); Albumin Level 4.4 g/dL (3.5-5.0); Alkaline Phosphatase 75 U/L (39-117); Anion Gap 12 (12-20); Aspartate Amino Transferase 28 U/L (5-31); Bilirubin Total 0.9 mg/dL (0.0-1.0); Blood Urea Nitrogen 25 mg/dL (9-16); Calcium 10.1 mg/dL (8.4-10.2); Carbon Dioxide 26 mmol/L (22-29); Chloride 107 mmol/L (96-108); Cholesterol 152 mg/dL (<200); Estimated Glomerular Filt Rate > 60; Glucose Fasting 118 mg/dL (60-99); HDL Cholesterol 63 mg/dL (>40); LDL Cholesterol Calculated 78 mg/dL (<100); Potassium 4.5 mmol/L (3.3-5.1); Sodium 140 mmol/L (135-145); Total Protein 7.1 g/dL (6.5-8.0); Triglycerides 55 mg/dL (<150)
[2024-11-15 08:46] LABS: Vitamin D 25-OH Total 49.5 ng/mL (>30)
== END 2024-11-15 07:32 | disposition home or self-care (01) ==
LOC: HO.LAB 07:31
PROVIDERS: PCP Internal Medicine; Visit Provider Internal Medicine
DX: E11.9 Type 2 diabetes mellitus without complications (principal); E78.5 Hyperlipidemia, unspecified; E55.9 Vitamin D deficiency, unspecified
CPT/HCPCS: 36415; 80053; 80061; 82043; 82306; 82570

== ENCOUNTER 2024-11-24 17:16 | Outpatient (AMB) | payer OTHER, SELFPAY ==
--- NOTE | 2024-11-24 17:25 | A.OFFPC_ITS ---
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 Required: No Accompanied by: Self / Same As Patient Allergies No Known Allergies Allergy (Verified 11/24/24 17:41) Medication List - Last Reconciled 11/24/24 by Iman Garzon MD atorvastatin 10 mg PO BEDTIME 90 days cholecalciferol (vitamin D3) 25 mcg PO DAILY 90 days hydrochlorothiazide 25 mg PO DAILY 90 days linaclotide (Linzess) 145 mcg PO DAILY PRN lisinopril 10 mg PO DAILY 90 days metformin 500 mg PO BID 90 days sennosides (senna) 17.2 mg (2 x 8.6 mg) PO BEDTIME Tobacco use date assessed: 09/05/24 Fall risk assessment: No Falls in past year Last assessed Fall Risk: 11/24/24 Dental Screening Dental Screen Date: 09/05/24 HPI HPI Comments History of Present Illness Details The patient is a 64-year-old female presenting for her annual physical examination. She has essential hypertension managed with lisinopril and hydrochlorothiazide, though recent blood pressure readings such as 150/90 mmHg suggest further monitoring is needed. Her type 2 diabetes mellitus is controlled with metformin, with a recent HbA1c of 6.5% and a fasting glucose level of 118 mg/dL. The patient also has dyslipidemia managed with atorvastatin, and her LDL cholesterol level was 78 mg/dL, which is close to the target of 70 mg/dL. Constipation is an ongoing issue for which she uses Linzess and senna. She underwent a colonoscopy last year and anticipates further screenings. Bone densitometry screening is pending for osteoporosis. Her pneumococcal vaccination is yet to be administered but has been suggested during the visit. Past medical procedures include a cholecystectomy and tubal ligation. The family history indicates her father had diabetes and hypertension, passing away at 84, while her mother, alive at 85, also has hypertension. In terms of lifestyle factors, she consumes alcohol moderately on weekends and smokes fewer than 10 cigarettes daily. - Mammography last completed in December t he previous year, with an appointment for this year already scheduled. - Colonoscopy completed last year, with a recommendation for yearly surveillance. - Bone densitometry pending. - Updated pneumococcal vaccination recom mended. - Lipid panel results: LDL at 78 mg/dL. - Type 2 Diabetes Mellitus monitoring, H bA1c at 6.5%, fasting glucose at 118 mg/dL. - Vitamin D levels reported as normal. [facility] Medical History Diverticulosis Tubular adenoma of colon Lumbar pain Hypovitaminosis D Dyslipidemia Diabetes mellitus Essential hypertension Surgical History History of mammogram History of laparoscopic cholecystectomy History of tubal ligation Family History Father Diabetes Hypertension Mother Hypertension Social History Housing: House Alcohol intake: current Alcohol intake frequency: a few times a week Alcohol type: wine and hard liquor Patient Tobacco Use Status: Current everyday Tobacco user Tobacco use type: Cigarette Cigarettes Per Day: 7 e-Cigarette/Vaping Use: Never Used Second Hand Smoke Exposure: No service: No Current occupational status: employed Current occupational exposures/hazards: No Cognitive needs: No Hearing needs: No Vision needs: No Questionnaire Thrive Questionnaire Date Thrive assessed: 09/05/24 NANNETTE-7 AMB Questionnaire NANNETTE-7 Date NANNETTE - 7 assessed: 09/05/24 Source: Developed by Drs. Walker Johnson, Gillian Pitts, Rayo Abdi and colleagues, with an educational david from [employer]. Review of Systems Const All systems reviewed & are unremarkable except as noted in HPI and below Card Denies chest pain at rest, Denies chest pain with activity, Denies edema, Denies irregular heart rhythm, Denies claudication, Denies dyspnea, Denies dyspnea on exertion, Denies orthopnea, Denies paroxysmal nocturnal dyspnea and Denies slow heart rate Resp Denies cough, Denies dyspnea and Denies dyspnea on exertion GI Denies abdominal pain, Denies change in bowel habits, Denies excessive flatus, Denies nausea and Denies vomiting Physical exam (Primary Care) Vital Signs: Last Vital Signs BP 150/92 H 11/24/24 17:27 BMI result Body Mass Index 27.6 Tobacco/Smoking Status: Tobacco use Status Tobacco use date assessed 09/05/24 11/24/24 17:31 Patient Tobacco Use Status Current everyday Tobacco 11/24/24 17:31 Tobacco use type Cigarette 11/24/24 17:31 e-Cigarette/Vaping Use Never Used 11/24/24 17:31 Thrive Assessment: Date of Thrive Assessment Date Thrive assessed 09/05/24 11/24/24 17:31 HENCO Head: Yes normal to inspection, Yes normocephalic and Yes atraumatic Ears: external ears normal Eyes General: appearance normal, both eyes and all related structures Eyelids: Yes eyelids normal Conjunctivae: conjunctivae normal Neck Neck: Yes normal visual inspection and Yes supple Resp Effort & Inspection: normal respiratory effort Auscultation: clear to auscultation bilaterally Cardio Jugular venous distension: no JVD Rate: regular rate Rhythm: regular rhythm Heart sounds: S1 normal heart sound present and S2 normal heart sound present GI Inspection: Yes normal to inspection Palpation (GI): Soft to palpation and nontender Auscultation: normal bowel sounds Skin General skin exam: no rashes or lesions noted Neuro General: no focal motor deficits Extrem General: Yes full ROM Psych Appearance: grossly normal Coding Level of Care Code Est Pt Prev Care >65y(88844) Diagnoses Physical exam Z00.00 Type 2 diabetes mellitus without complication, without long-term current use of insulin E11.9 Diabetes mellitus type: type 2 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 truck 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 use Diabetes mellitus complication status: without complication Time Spent (min) 31 Assessment & Plan Assessment & Plan (1) Physical exam: Code(s): Z00.00 - Encounter for general adult medical examination without abnormal findings Category: Medical (2) Diabetes mellitus: Code(s): E11.9 - Type 2 diabetes mellitus without complications Category: Medical Qualifiers: Diabetes mellitus type: type 2 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 Atorvastatin will continue for dyslipidemia, with the LDL cholesterol level of 78 mg/dL monitored over time. Metformin is effectively managing type 2 diabetes as indicated by recent laboratory results. Plans for a bone densitometry screening and the administration of the pneumococcal vaccine are underway to address osteoporosis and infection prevention respectively. The patient's current treatment for constipation will continue, and ongoing lifestyle assessment regarding smoking and alcohol consumption is advised. Patient was informed and verbally consented to the use of an ambient scribe for clinic note documentation during this visit. We discussed the patient's management for her chronic conditions, including hypertension, diabetes, and dyslipidemia. I stressed the importance of regular monitoring of blood pressure and the potential need for lifestyle modifications to control it effectively. We reviewed the slightly elevated LDL level and decided to forgo additional medication at this time, given its proximity to the goal level. Osteoporosis screening with bone densitometry was planned, and the necessity of the pneumococcal vaccine was emphasized, which she can receive at her convenience. The patient agreed to continue her current constipation management with Linzess and senna and recognized the importance of follow-ups and compliance with recommended screenings and vaccinations. We also reviewed smoking and alcohol consumption and discussed potential health impacts. Orders: Orders Microalbumin, Random (w Creat) 4 Months R80.9 - Proteinuria, unspecified Vitamin D 25-OH Total 4 Months E55.9 - Vitamin D deficiency, unspecified Comprehensive [place]. Panel Fast 4 Months E11.9 - Type 2 diabetes mellitus without complications XR DEXA axial skeleton 11/24/ Z78.0 - Asymptomatic menopausal state Lipid Panel 4 Months E78.5 - Hyperlipidemia, unspecified Referrals Open Access Screening Colonoscopy Referral Z12.12 - Encounter for screening for malignant neoplasm of rectum Patient Instructions: - Monitor blood pressure at home and note any significant changes. - Continue taking atorvastatin for cholesterol management. - Schedule a bone density scan to check for osteoporosis. - Get pneumococcal vaccination as soon as possible. - Maintain current regimen for diabetes and monitor blood sugar levels. - Follow dietary and lifestyle recommendations to help manage hypertension. - Continue with Linzess and senna for constipation management. - Book your colonoscopy appointment as recommended. - Reduce smoking and limit alcohol consumption to weekends as discussed.
[2024-11-24 17:27] VITALS: BP 150/92; BMI 27.6
== END 2024-11-24 17:55 | disposition home or self-care (01) ==
LOC: HO.HMCH 17:16
PROVIDERS: PCP Internal Medicine; Visit Provider Internal Medicine
DX: Z00.00 Encounter for general adult medical examination without abnormal findings (principal); E11.9 Type 2 diabetes mellitus without complications

== ENCOUNTER → 2024-11-24 17:16 | Outpatient (BNVA) | payer OTHER, SELFPAY | PROVIDERS: PCP Internal Medicine; Visit Provider Internal Medicine ==

== ENCOUNTER 2024-12-23 09:05 | Outpatient (REF) | payer OTHER, SELFPAY | END 2024-12-23 09:06 | disposition home or self-care (01) | LOC: HO.MAMMO 09:05 | PROVIDERS: PCP Internal Medicine; Visit Provider Internal Medicine | DX: Z12.31 Encounter for screening mammogram for malignant neoplasm of breast (principal) | CPT/HCPCS: 77063; 77067 ==

== ENCOUNTER → 2024-12-23 09:45 | Outpatient (BNV) | payer OTHER, SELFPAY | PROVIDERS: PCP Internal Medicine; Visit Provider Internal Medicine | DX: Z12.31 Encounter for screening mammogram for malignant neoplasm of breast (principal) | CPT/HCPCS: 77063; 77067 ==

== ENCOUNTER 2025-04-08 07:52 | Outpatient (REF) | payer OTHER, SELFPAY ==
[2025-04-08 09:37] LABS: Alanine Aminotransferase 22 U/L (0-31); Albumin Level 4.6 g/dL (3.5-5.0); Alkaline Phosphatase 83 U/L (39-117); Anion Gap 14 (12-20); Aspartate Amino Transferase 26 U/L (5-31); Blood Urea Nitrogen 17 mg/dL (9-16); Calcium 9.8 mg/dL (8.4-10.2); Carbon Dioxide 29 mmol/L (22-29); Chloride 105 mmol/L (96-108); Cholesterol 153 mg/dL (<200); Estimated Glomerular Filt Rate > 60; HDL Cholesterol 51 mg/dL (>40); Potassium 4.3 mmol/L (3.3-5.1); Sodium 144 mmol/L (135-145); Total Protein 7.1 g/dL (6.5-8.0); Triglycerides 59 mg/dL (<150)
[2025-04-08 10:03] LABS: Microalbum/Creatinine Ratio Ur 4.0 ug/mg cr (<30)
== END 2025-04-08 07:53 | disposition home or self-care (01) ==
LOC: HO.LAB 07:52
PROVIDERS: PCP Internal Medicine; Visit Provider Internal Medicine
DX: E11.9 Type 2 diabetes mellitus without complications (principal); E55.9 Vitamin D deficiency, unspecified; E78.5 Hyperlipidemia, unspecified; R80.9 Proteinuria, unspecified
CPT/HCPCS: 36415; 80053; 80061; 82043; 82306; 82570

== ENCOUNTER 2025-04-13 15:09 | Outpatient (AMB) | payer OTHER, SELFPAY ==
--- NOTE | 2025-04-13 15:28 | MHC.PC.OV ---
Vital Signs 04/13/25 15:29 04/13/25 15:29 Height 5 ft 4 in 5 ft 4 in Weight 162 lb 2 oz BMI 27.8 BP 150/80 H Blood Pressure Location Lt brachial Lt brachial Position Sitting Sitting Pulse 78 Pulse Source Pulse Oximeter Pulse Oximetry (%) 98 Oxygen Delivery Method Room Air Room Air Intake Visit Reasons: 5 month f/u - see comments Bull Driver Required: No Accompanied by: Self / Same As Patient Allergies No Known Allergies Allergy (Verified 04/13/25 15:39) Medication List - Last Reconciled 04/13/25 by Iman Garzon MD atorvastatin 10 mg PO BEDTIME 90 days cholecalciferol (vitamin D3) 25 mcg PO DAILY 90 days hydrochlorothiazide 25 mg PO DAILY 90 days linaclotide (Linzess) 145 mcg PO DAILY PRN lisinopril 10 mg PO DAILY 90 days metformin 500 mg PO BID 90 days sennosides (senna) 17.2 mg (2 x 8.6 mg) PO BEDTIME Tobacco use date assessed: 04/13/25 Fall risk assessment: No Falls in past year Last assessed Fall Risk: 04/13/25 Dental Screening Dental Screen Date: 04/13/25 Did you have a dental visit in the last 12 months?: No Did you have a dental problem in the last 6 months where you did not have access to dental care?: No Was dental information given to patient?: No HPI HPI Comments History of Present Illness Details The patient is a 64-year-old female presenting with a follow-up for her chronic conditions, including diabetes and hypertension. Her Type 2 Diabetes Mellitus is currently managed with Metformin 500 mg, and her recent HbA1c level was 6.4%, indicating good control over the past two to three months. She reports adherence to her medication regimen. The patient has a history of Essential Hypertension, currently managed with Lisinopril and Hydrochlorothiazide. Her blood pressure was recorded at 150/80 mmHg, which is slightly elevated. She was advised to increase her Lisinopril dosage to 20 mg daily. The patient also has Hyperlipidemia, for which she takes Atorvastatin. Her LDL cholesterol level was noted to be 91 mg/dL, slightly higher than the previous value of 78 mg/dL. She was advised to increase her Atorvastatin dosage slightly to better manage her cholesterol levels. [facility] Medical History Diverticulosis Tubular adenoma of colon Lumbar pain Hypovitaminosis D Dyslipidemia Diabetes mellitus Essential hypertension Surgical History History of mammogram History of laparoscopic cholecystectomy History of tubal ligation Family History Father Diabetes Hypertension Mother Hypertension Social History Housing: House Alcohol intake: current Alcohol intake frequency: a few times a week Alcohol type: wine and hard liquor Patient Tobacco Use Status: Current everyday Tobacco user Tobacco use type: Cigarette Cigarettes Per Day: 7 e-Cigarette/Vaping Use: Never Used Second Hand Smoke Exposure: No service: No Current occupational status: employed Current occupational exposures/hazards: No Cognitive needs: No Hearing needs: No Vision needs: No Questionnaire PHQ-9 Over the last 2 weeks, how often have you been bothered by any of the following problems? 1. Little interest or pleasure in doing things: not at all 2. Feeling down, depressed, or hopeless: not at all 3. Trouble falling or staying asleep, or sleeping too much: not at all 4. Feeling tired or having little energy: not at all 5. Poor appetite or overeating: not at all 6. Feeling bad about yourself - or that you are a failure or have let yourself or your family down: not at all 7. Trouble concentrating on things, such as reading the newspaper or watching television: not at all 8. Moving or speaking so slowly that other people could have noticed. Or the opposite - being so fidgety or restless that you have been moving around a lot more than usual: not at all 9. Thoughts that you would be better off or of hurting yourself in some way: not at all Total score: 0 Depression Screening Interpretation: Negative Depression Screening Done: Yes 70793 - PHQ-9 Billing: Yes Source: Developed by Drs. Walker Johnson, Gillian Pitts, Rayo Abdi and colleagues, with an educational david from [employer]. Thrive Questionnaire Date Thrive assessed: 04/13/25 I am a: Patient What is your living situation today?: I choose not to answer this question Within the past 12 months, did the food you bought not last and you didn't have the money to get more?: I choose not to answer this question Within the past 12 months, did you worry whether your food would run out before you got money to buy more?: I choose not to answer this question Do you have trouble paying for medicines?: No Do you have trouble getting transportation to medical appointments?: No Do you have trouble paying your heating and electricity bill?: No Do you have trouble taking care of your child, family member or friend?: No Do you have trouble with day-to-day activities such as bathing, preparing meals, shopping, managing finances, etc.?: No Are you currently unemployed and looking for a job?: No Are you interested in more education?: No Please select the resources that you would like help with: None Currently or been in a relationship where the following occur: I choose not to answer THRIVE Score: 0 AUDIT C Alcohol Use Questionnaire (AUDIT-C) 1. How often do you have a drink containing alcohol?: 2-3 times a week 2. How many drinks containing alcohol do you have on a typical day when you are drinking?: 1 or 2 3. How often do you have six or more drinks on one occasion?: Monthly Total Score: 5 NANNETTE-7 AMB Questionnaire NANNETTE-7 Date NANNETTE - 7 assessed: 04/13/25 Feeling nervous, anxious, or on edge: 0 = Not at all Not being able to stop or control worryin = Not at all Worrying too much about different things: 0 = Not at all Trouble relaxin = Not at all Being so restless that it is hard to sit still: 0 = Not at all Becoming easily annoyed or irritable: 0 = Not at all Feeling afraid as if something awful might happen: 0 = Not at all Total NANNETTE-7 score (0-4 normal; 5-9 mild; 10-14 moderate; 15-21 severe): 0 Source: Developed by Drs. Walker Johnson, Gillian Pitts, Rayo Abdi and colleagues, with an educational david from [employer]. NANNETTE-7 Assessment Billing NANNETTE-7 Assessment Tool: NANNETTE-7 Assessment 94280 Review of Systems Const All systems reviewed & are unremarkable except as noted in HPI and below Card Denies chest pain at rest, Denies chest pain with activity, Denies edema, Denies irregular heart rhythm, Denies claudication, Denies dyspnea, Denies dyspnea on exertion, Denies orthopnea, Denies paroxysmal nocturnal dyspnea and Denies slow heart rate Resp Denies cough, Denies dyspnea and Denies dyspnea on exertion GI Denies abdominal pain, Denies change in bowel habits, Denies excessive flatus, Denies nausea and Denies vomiting Physical exam (Primary Care) Vital Signs: Last Vital Signs Pulse 78 04/13/25 15:29 BP 150/80 H 04/13/25 15:29 Pulse Ox 98 04/13/25 15:29 Oxygen Delivery Method Room Air 04/13/25 15:29 BMI result Body Mass Index 27.8 Tobacco/Smoking Status: Tobacco use Status Tobacco use date assessed 04/13/25 04/13/25 15:30 Patient Tobacco Use Status Current everyday Tobacco 04/13/25 15:28 Tobacco use type Cigarette 04/13/25 15:28 e-Cigarette/Vaping Use Never Used 04/13/25 15:28 PHQ-9: PHQ-9 Score PHQ-9: Total score 0 04/13/25 15:41 Depression Screening Interpretation: Negative Thrive Assessment: Date of Thrive Assessment Date Thrive assessed 04/13/25 04/13/25 15:30 Currently or been in a relationship where the following occur: I choose not to answer Resp Effort & Inspection: normal respiratory effort Auscultation: clear to auscultation bilaterally Cardio Jugular venous distension: no JVD Rate: regular rate Rhythm: regular rhythm Heart sounds: S1 normal heart sound present and S2 normal heart sound present Extrem General: Yes full ROM Results AMB Hemoglobin A1c AMB Hemoglobin A1c 6.3 % Last Edit by Mayelin Fermin MA on 04/13/25 15:45 Coding Level of Care Code Est Pt Level 4 (16053) Complex EM visit Add On G2211 Diagnoses Essential hypertension I10 Type 2 diabetes mellitus without complication, without long-term current use of insulin E11.9 Diabetes mellitus type: type 2 Diabetes mellitus health educator insulin use: without residential use Diabetes mellitus complication status: without complication Hypovitaminosis D E55.9 Dyslipidemia E78.5 Additional Codes NANNETTE-7 Assessment Billing - NANNETTE-7 Assessment Tool: NANNETTE-7 Assessment 25046 ([id number]) PHQ-9 - 66007 - PHQ-9 Billing: Yes ([id number]) Time Spent (min) 23 Assessment & Plan Assessment & Plan (1) Essential hypertension: Code(s): I10 - Essential (primary) hypertension Category: Medical (2) Diabetes mellitus: Code(s): E11.9 - Type 2 diabetes mellitus without complications Category: Medical Qualifiers: Diabetes mellitus type: type 2 Diabetes mellitus residential insulin use: without health educator use Diabetes mellitus complication status: without complication Qualified Code(s): E11.9 - Type 2 diabetes mellitus without complications (3) Hypovitaminosis D: Code(s): E55.9 - Vitamin D deficiency, unspecified Category: Medical (4) Dyslipidemia: Code(s): E78.5 - Hyperlipidemia, unspecified Category: Medical Plan Plan Patient was informed and verbally consented to the use of an ambient scribe for clinic note documentation during this visit. 1. Type 2 diabetes mellitus without complications E11.9 HCC 19 The patient's Type 2 Diabetes Mellitus is currently well-managed with Metformin 500 mg, as indicated by an HbA1c of 6.4%. Continued adherence to the current medication regimen is advised, with follow-up labs scheduled in four months to monitor glycemic control. 2. Essential (primary) hypertension I10 The patient's blood pressure was recorded at 150/80 mmHg, indicating a need for adjustment in her antihypertensive therapy. The Lisinopril dosage has been increased to 20 mg daily to achieve better blood pressure control. 3. Hyperlipidemia, unspecified E78.5 The patient's LDL cholesterol level is 91 mg/dL, which is above the target range. The Atorvastatin dosage will be increased slightly to improve lipid control, with follow-up lipid panels to be conducted in four months. 4. Vitamin D deficiency, unspecified E55.9 Continue Vitamin D. Orders: Orders Lipid Panel 4 Months E78.5 - Hyperlipidemia, unspecified Microalbumin, Random (w Creat) 4 Months R80.9 - Proteinuria, unspecified Vitamin B12 and Folate 4 Months E53.8 - Deficiency of other specified B group vitamins Comprehensive [place]. Panel Fast 4 Months E11.9 - Type 2 diabetes mellitus without complications AMB Hemoglobin A1c Today Z13.9 - Encounter for screening, unspecified Vitamin D 25-OH Total 4 Months E55.9 - Vitamin D deficiency, unspecified Medications: New atorvastatin (Lipitor) 20 mg PO BEDTIME 90 tabs 1RF 90 days Changed From linaclotide (Linzess) 145 mcg PO DAILY PRN irritable bowel To linaclotide (Linzess) 145 mcg PO DAILY PRN 90 caps 1RF irritable bowel 90 days Discontinued atorvastatin Discontinued Reason: Patient Completed Course 10 mg PO BEDTIME 90 days 90 tabs 3RF E11.9 - Type 2 diabetes mellitus without complications
[2025-04-13 15:29] VITALS: BP 150/80; PULSE 78; O2SAT 98; BMI 27.8
== END 2025-04-13 15:57 | disposition home or self-care (01) ==
LOC: HO.HMCH 15:09
PROVIDERS: PCP Internal Medicine; Visit Provider Internal Medicine
DX: I10 Essential (primary) hypertension (principal); E11.9 Type 2 diabetes mellitus without complications; E55.9 Vitamin D deficiency, unspecified; E78.5 Hyperlipidemia, unspecified; Z13.9 Encounter for screening, unspecified

== ENCOUNTER → 2025-04-13 15:09 | Outpatient (BNVA) | payer OTHER, SELFPAY | PROVIDERS: PCP Internal Medicine; Visit Provider Internal Medicine | DX: E11.9 Type 2 diabetes mellitus without complications (principal); I10 Essential (primary) hypertension; E78.5 Hyperlipidemia, unspecified; E55.9 Vitamin D deficiency, unspecified; R80.9 Proteinuria, unspecified; E53.8 Deficiency of other specified B group vitamins; Z79.84 Long term (current) use of oral hypoglycemic drugs | CPT/HCPCS: 83036; 96127 ==